=== PATIENT | male | born 1985 | race Caucasian/White ===

== ENCOUNTER 2016-02-25 09:42 | Emergency (ER) | payer OTHER ==
[~2016-02-25] VITALS: Ht 170.2 cm; Wt 105.9 kg
[~2016-02-25 09:42] MED LIST: AMT10 PO; CLON0.5T3 PO; OMEP40CA PO; SERT50TA PO
[2016-02-25 09:46] VITALS: TEMP 36.8; Ht 170.2 cm; Wt 105.9 kg
[2016-02-25] MEDS ORDERED: CYM30 PO (10:26)
[2016-02-25] MEDS ORDERED: PANT40TA2 PO (10:27)
[2016-02-25 10:43] VITALS: O2SAT 94
[2016-02-25 11:10] LABS: BASO % 0.2 %; BASO ABS # 0.01 K/uL (0-0.2); COMPLETE YES; EOS % 1.5 %; HEMATOCRIT 42.5 % (42-52); IG% 0.2 %; LYMPH ABS # 2.46 K/uL (1.2-3.4); MEAN CELL VOLUME 86.9 fL (80-100); MEAN CORPUSCULAR HEMOGLOBIN 31.5 pg (25-34); MEAN CORPUSCULAR HGB CONC 36.2 g/dl (32-36); MEAN PLATELET VOLUME 9.8 fL (7.4-10.4); MONO % 5.9 %; NEUT % 54.2 %; PLATELET COUNT 237 K/uL (130-400); RED BLOOD COUNT 4.89 M/uL (4.7-6.1); WHITE BLOOD COUNT 6.47 K/uL (4.8-10.8)
[2016-02-25 11:22] LABS: PARTIAL THROMBOPLASTIN RATIO 1.2; PROTHROMBIN TIME (PATIENT) 10.8 SECONDS (9.0-12.0)
--- NOTE | 2016-02-25 11:38 | DIAGNOSTIC IMAGING REPORT ---
CHEST ONE VIEW PORTABLE CLINICAL HISTORY: Fever. Weakness. Chest pressure. COMPARISON STUDY: Chest radiograph July 07, 2015. FINDINGS: Lung volumes are normal. Lungs are clear. There is no pneumothorax or pleural effusion. Cardiac size is normal. Mediastinal contours are normal. There is no evidence of pulmonary edema. IMPRESSION: No acute cardiopulmonary findings. Electronically signed by: Joseph Mast M.D. 02/25/2016 11:36 AM
[2016-02-25 11:42] LABS: ALT/SGPT 75 U/L (12-78); BLOOD UREA NITROGEN 10 mg/dl (7-18); CALCIUM 8.8 mg/dl (8.5-10.1); CARBON DIOXIDE 26 mmol/L (21-32); CHLORIDE 105 mmol/L (98-107); GLUCOSE 88 mg/dl (70-99); POTASSIUM 4.8 mmol/L (3.5-5.1); SODIUM 140 mmol/L (136-145)
[2016-02-25 11:52] VITALS: PULSE 60; O2SAT 97
[2016-02-25 11:53] LABS: ALKALINE PHOSPHATASE 90 U/L (45-117); AST/SGOT 39 U/L (15-37); CKMB/CK RATIO 0.5 (0-3.0)
[2016-02-25 11:59] VITALS: BP 158/88
--- NOTE | 2016-02-25 12:10 | EMERGENCY ROOM VISIT NOTE ---
History Report prepared by [place]tang: Sheyla Macario Under the Supervision of: Dr. Mickey Duffy D.O. First contact with patient: 10:39 Chief Complaint: CHEST PAIN Stated Complaint: WEAKNESS,CHEST PRESSURE,HEADACHE,L ARM NUMBNESS Nursing Triage Summary: pt awoke and had pain behind his L scapula, then developed cp that radiated down LUE, hx of anxiety, took his klonopin, pt states he is pain free now History of Present Illness The patient is a 30 year old male who presents to the Emergency Room with complaints of intermittent chest pain that started this morning. He woke up this morning with a stabbing pain behind his left scapula that radiated into his chest. The pain radiated down his left arm and he became diaphoretic. The patient also felt weak. He took a Klonopin and it relieved his pain. Currently, he is pain free. The patient states that he has a history of anxiety attacks and knows that the pain instigates.his anxiety. However, most of the time the pain starts when he is relaxed and not anxious. He adds that this has been an ongoing problem. Source of History: patient Onset: this morning Position: chest Quality: stabbing Timing: intermittent Associated Symptoms: + back pain, + diaphoresis, + weakness (generalized) Note: left arm pain Review of Systems See HPI for pertinent positives & negatives. A total of 10 systems reviewed and were otherwise negative. Past Medical & Surgical Medical Problems: (1) Anxiety (2) Panic disorder Surgical Problems: (1) S/P ACL repair Family History FH: heart disease FATHER (onset age 60 with [place] and pacemaker ) Social History Smoking Status: Never Smoker Alcohol Use: occasionally Drug Use: none Occupation Status: employed Current/Historical Medications Scheduled Duloxetine HCl (Duloxetine HCl), 30 MG PO DAILY Omeprazole (Prilosec), 40 MG PO DAILY Pantoprazole (Pantoprazole Sodium), 1 TAB PO BID Scheduled PRN Clonazepam (Klonopin), 0.5 MG PO DAILY PRN for AN Allergies Coded Allergies: No Known Allergies (Unverified , 02/25/16) Physical Exam Vital Signs Date Time Temp Pulse Resp B/P Pulse Ox O2 Delivery O2 Flow Rate FiO2 02/25/16 11:47 147/84 02/25/16 11:42 63 18 96 02/25/16 11:29 130/75 02/25/16 11:12 60 16 02/25/16 10:58 138/89 02/25/16 10:43 94 Room Air 02/25/16 10:42 77 19 94 02/25/16 10:30 58 02/25/16 10:28 135/97 02/25/16 10:17 Room Air 02/25/16 10:16 136/98 02/25/16 09:46 36.8 62 20 153/95 99 Room Air Physical Exam CONSTITUTIONAL/VITAL SIGNS: Reviewed / noted above. GENERAL: Non-toxic in appearance. INTEGUMENTARY: Warm, dry, and [place]. HEAD: Normocephalic. EYES: without scleral icterus or trauma. ENT/OROPHARYNX: clear and moist. LYMPHADENOPATHY/NECK: Is supple without lymphadenopathy or meningismus. RESPIRATORY: Lungs clear and equal. CARDIOVASCULAR: Regular rate and rhythm. GI/ABDOMEN: Soft and nontender. No organomegaly or pulsatile mass. No rebound or guarding. Normal bowel sounds. EXTREMITIES: Warm and well perfused. BACK: No CVA tenderness. NEUROLOGICAL: Intact without focal deficits. PSYCHIATRIC: normal affect. MUSCULOSKELETAL: Normally developed with good muscle tone. Medical Decision & Procedures ER Provider Diagnostic Interpretation: X ray results and stated below per my interpretation and radiology interpretation. CHEST ONE VIEW PORTABLE CLINICAL HISTORY: Fever. Weakness. Chest pressure. COMPARISON STUDY: Chest radiograph July 07, 2015. FINDINGS: Lung volumes are normal. Lungs are clear. There is no pneumothorax or pleural effusion. Cardiac size is normal. Mediastinal contours are normal. There is no evidence of pulmonary edema. IMPRESSION: No acute cardiopulmonary findings. Electronically signed by: Joseph Mast M.D. 02/25/2016 11:36 AM Laboratory Results 02/25/16 11:01 Red Blood Count 4.89, Mean Corpuscular Volume 86.9, Mean Corpuscular Hemoglobin 31.5, Mean Corpuscular Hemoglobin Concent 36.2, Mean Platelet Volume 9.8, Neutrophils (%) (Auto) 54.2, Lymphocytes (%) (Auto) 38.0, Monocytes (%) (Auto) 5.9, Eosinophils (%) (Auto) 1.5, Basophils (%) (Auto) 0.2, Neutrophils # (Auto) 3.51, Lymphocytes # (Auto) 2.46, Monocytes # (Auto) 0.38, Eosinophils # (Auto) 0.10, Basophils # (Auto) 0.01 02/25/16 11:01 Test 02/25/16 11:01 White Blood Count 6.47 K/uL (4.8-10.8) Red Blood Count 4.89 M/uL (4.7-6.1) Hemoglobin 15.4 g/dL (14.0-18.0) Hematocrit 42.5 % (42-52) Mean Corpuscular Volume 86.9 fL (80-100) Mean Corpuscular Hemoglobin 31.5 pg (25-34) Mean Corpuscular Hemoglobin Concent 36.2 g/dl (32-36) Platelet Count 237 K/uL (130-400) Mean Platelet Volume 9.8 fL (7.4-10.4) Neutrophils (%) (Auto) 54.2 % Lymphocytes (%) (Auto) 38.0 % Monocytes (%) (Auto) 5.9 % Eosinophils (%) (Auto) 1.5 % Basophils (%) (Auto) 0.2 % Neutrophils # (Auto) 3.51 K/uL (1.4-6.5) Lymphocytes # (Auto) 2.46 K/uL (1.2-3.4) Monocytes # (Auto) 0.38 K/uL (0.11-0.59) Eosinophils # (Auto) 0.10 K/uL (0-0.5) Basophils # (Auto) 0.01 K/uL (0-0.2) RDW Standard Deviation 39.4 fL (36.4-46.3) RDW Coefficient of Variation 12.4 % (11.5-14.5) Immature Granulocyte % (Auto) 0.2 % Immature Granulocyte # (Auto) 0.01 K/uL (0.00-0.02) Prothrombin Time 10.8 SECONDS (9.0-12.0) Prothromb Time International Ratio 1.0 (0.9-1.1) Activated Partial Thromboplast Time 30.2 SECONDS (21.0-31.0) Partial Thromboplastin Ratio 1.2 D-Dimer 190 ug/L FEU (0-500) Anion Gap 9.0 mmol/L (3-11) Est Creatinine Clear Calc Drug Dose 116.0 ml/min Estimated GFR () 105.3 Estimated GFR (Non- 90.9 BUN/Creatinine Ratio 9.0 (10-20) Calcium Level 8.8 mg/dl (8.5-10.1) Total Bilirubin 0.3 mg/dl (0.2-1) Direct Bilirubin < 0.1 mg/dl (0-0.2) Aspartate Amino Transf (AST/SGOT) 39 U/L (15-37) Alanine Aminotransferase (ALT/SGPT) 75 U/L (12-78) Alkaline Phosphatase 90 U/L (45-117) Total Creatine Kinase 99 U/L (39-308) Creatine Kinase MB 0.5 ng/ml (0.5-3.6) Creatine Kinase MB Ratio 0.5 (0-3.0) Troponin I < 0.015 ng/ml (0-0.045) Total Protein 7.9 gm/dl (6.4-8.2) Albumin 4.1 gm/dl (3.4-5.0) Lipase 122 U/L (73-393) Thyroid Stimulating Hormone (TSH) 1.660 uIu/ml (0.300-4.500) Laboratory results as stated above per my review. ECG Indication: chest pain Rate (beats per minute): 59 Rhythm: sinus bradycardia Findings: no acute ischemic change, no ectopy ED Course 1052: Previous medical records were reviewed. The patient was evaluated in room A12. A complete history and physical examination was performed. 1214: On reevaluation, the patient is doing well. I discussed the results and findings with the patient. He verbalized agreement of the treatment plan. He was discharged home. Medical Decision Differential includes acute myocardial infarction, acute coronary syndrome, myocarditis, pericarditis, pericardial effusions /tamponad, esophageal perforation, thoracic aortic dissection, pulmonary embolism, pneumonia, pneumothorax, pancreatitis, shingles, acute cholecystitis, perforated abdominal viscus. This is a 30-year-old male who presents to the ED with a chief complaint of a sharp left-sided back pain radiating into the left chest. This awoke him from sleep this morning. It seemed to be worse with deep breathing. He also feels a little clammy. He does have a history of anxiety. He says that some of his symptoms may be related to anxiety. The patient took Klonopin. His symptoms resolved. He is no longer having pain. His vital signs are normal. His physical exam reveals no abnormal findings. EKG shows a sinus rhythm. CBC is normal. D-dimer is negative. Troponin was negative. Chemistry panel was unremarkable. Chest x-ray did not show any acute disease. The patient was told the results of the test. He is felt to be stable for discharge and outpatient follow-up. Impression Primary Impression: Left sided chest pain Additional Impression: Left-sided back pain Scribe Attestation The scribe's documentation has been prepared under my direction and personally reviewed by me in its entirety. I confirm that the note above accurately reflects all work, treatment, procedures, and medical decision making performed by me. Departure Information Dispostion Home / Self-Care Referrals Patricio Adrian M.D. (PCP) Forms HOME CARE DOCUMENTATION FORM, IMPORTANT VISIT INFORMATION Patient Instructions A Signature Page, Chest Pain - [facility], Counts Include 234 B[facility] At [facility] Additional Instructions Follow-up with your doctor for further care and evaluation in 1-2 days. Return to the emergency department for worsening or new symptoms or any concerns. You have been examined and treated today on an emergency basis only. This is not a substitute for, or an effort to provide, complete comprehensive medical care. It is impossible to recognize and treat all injuries or illnesses in a single emergency department visit. It is therefore important that you follow up closely with your doctor. Call as soon as possible for an appointment.
== END 2016-02-25 12:23 | disposition home or self-care (01) ==
LOC: C.EDB 09:44 → C.EDA 12:23
DX: R07.9 Chest pain, unspecified (principal); M54.9 Dorsalgia, unspecified; F41.9 Anxiety disorder, unspecified; Z82.49 Family history of ischemic heart disease and other diseases of the circulatory system; Z79.899 Other long term (current) drug therapy

== ENCOUNTER 2022-03-28 19:31 | Inpatient (IN) ==
[2022-03-28 20:37] LABS: Basophils # (auto) 0.04 K/uL (0-0.2); Basophils % (auto) 0.5 %; Eosinophils # (auto) 0.07 K/uL (0-0.50); Eosinophils % (auto) 0.9 %; Hematocrit (blood only) 41.4 % (42.0-52.0); Hemoglobin 14.4 g/dl (14.0-18.0); Immature Granulocytes # (auto) 0.02 K/uL (0.01-0.20); Immature Granulocytes % (auto) 0.2 %; Lymphocytes # (auto) 2.51 K/uL (1.2-3.4); Lymphocytes % (auto) 31.3 %; Mean Corpuscular Hemoglobin 31.6 pg (25.0-34.0); Mean Corpuscular Hgb Conc 34.8 g/dL (32.0-36.0); Mean Corpuscular Volume 90.8 fL (80.0-100.0); Mean Platelet Volume 10.2 fL (9.4-12.4); Monocytes # (auto) 0.45 K/uL (0.11-0.59); Monocytes % (auto) 5.6 %; Neutrophils # (auto) 4.93 K/uL (1.40-6.50); Neutrophils % (auto) 61.5 %; Platelet Count 217 K/uL (130-400); RDW Coefficient of Variation 12.6 % (11.5-14.5); RDW Standard Deviation 41.7 fL (36.4-46.3); Red Blood Count 4.56 M/uL (4.70-6.10); White Blood Count 8.02 K/ul (4.8-10.8)
[2022-03-28 20:56] LABS: Acetaminophen 5 ug/ml (10-30); Salicylate < 3.0 mg/dl (3.0-30)
[2022-03-28 21:01] LABS: Albumin Globulin Ratio 1.6 (0.9-2); Albumin Level 4.5 gm/dl (3.4-5.0); BUN Creatinine Ratio 18.6 (10-20); Bilirubin,Total 0.5 mg/dl (0.2-1.0); Calcium 9.5 mg/dl (8.5-10.1); Creatinine Clr Calc Pharmacy 104.4 ml/min; Est GFR (African American) 109.9 ml/min; Est GFR (Non-African American) 94.8 ml/min; Globulin 2.8 gm/dl (2.5-4.0); Potassium 4.1 mmol/L (3.5-5.1); Total Protein 7.3 gm/dl (6.0-8.3)
[2022-03-28 21:51] LABS: Bilirubin Urine Negative (Negative); Blood Urine Negative (Negative); Color Urine Yellow; Glucose Urine UA Negative (Negative); Ketones Urine Trace (Negative); Leukocyte Esterase Urine Negative (Negative); Nitrite Urine Negative (Negative); Protein Urine Negative (Negative); Specific Gravity Urine 1.029 (1.000-1.030); Urobilinogen Urine Negative (Negative); pH Urine 6.5 (4.5-7.5)
[2022-03-28 21:54] LABS: Appearance Urine Slightly Cloudy (Clear)
[2022-03-28 22:17] LABS: Amphetamines+Metham, Urine Neg (Neg); Barbiturates, Urine Neg (Neg); Benzodiazepine, Urine Neg (Neg); Cocaine, Urine Neg (Neg); MDMA (Ecstacy), Urine Neg (Neg); Methadone, Urine Neg (Neg); Opiate, Urine Neg (Neg); Phencyclidine, Urine Neg (Neg)
--- NOTE | 2022-03-28 22:22 | Emergency Department Note ---
History of Present Illness General Chief complaint: Mental Health Evaluation Stated complaint: MENTAL HEALTH EVAULATION Time Seen by Provider: 03/28/22 19:46 History of Present Illness Provider complaint: Mental health evaluation 37-year-old male presents emergency department with mental health evaluation. Patient has a history of narcissistic personal. Patient states he has been havi ng difficulty managing his emotions going from rate depression. Patient reports suicidal ideation having reckless driving. Home Medications Medication Instructions Recorded Confirmed Type naltrexone 50 mg tablet 50 mg PO QAM 06/16/18 03/28/22 History pantoprazole 40 mg tablet,delayed 40 mg PO BID 06/16/18 03/28/22 History release trazodone 50 mg tablet 50 mg PO QPM PRN Sleep 06/16/18 03/28/22 History lamotrigine 150 mg tablet 300 mg PO QAM 04/09/19 03/28/22 History (Lamictal) minocycline 50 mg capsule 500 mg PO QAM 09/06/20 12/20/20 History Allergies Allergy/AdvReac Type Severity Reaction Status Date / Time metoclopramide [From Reglan] AdvReac Mild Akathisia Verified 12/20/20 17:37 azithromycin [From Zithromax] AdvReac Anxiety Verified 12/20/20 17:37 Past Med/Surg History Medical History Anxiety Bipolar disorder 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 Panic disorder Surgical History S/P ACL repair Family History Other No significant family history Social History Smoking Status: Current every day smoker Tobacco Type: Cigarettes Preferred Language: Malagasy marital status: Current Living Situation: Family current occupational status: unemployed Feels Safe at Home: Yes Gender Identity: Male Physical Exam Vital Signs Vital Signs - 24 hr 03/28/22 19:37 03/28/22 20:15 03/28/22 22:30 Temperature 36.6 C Temperature Source Temporal Artery Scan Pulse Rate 80 Pulse Rate [Finger] 72 55 L Respiratory Rate 20 20 16 Respiratory Effort / Characteristics Non-Labored Spontaneous Non-Labored Spontaneous Non-Labored Spontaneous Respiratory Depth Normal Normal Normal Blood Pressure 169/95 H Blood Pressure [Left Arm] 147/101 H 140/79 Blood Pressure Mean 119 Blood Pressure Mean [Left Arm] 116 99 Pulse Oximetry 98 98 98 Oxygen Delivery Method Room Air Room Air Room Air Sepsis Recent Fever Within 48 Hours No Sepsis New/Unexplained Change in Mental Status N/A Sepsis Action Taken by Nursing No Action Required Physical Exam GENERAL: He is oriented to person, place, and time. He appears well-developed and well-nourished. HENT: Exam performed. - Head: Normocephalic and atraumatic. EYES: Conjunctivae and EOM are normal. Right eye exhibits no discharge. Left eye exhibits no discharge. No scleral icterus. NECK: Normal range of motion. Neck supple. No JVD present. CV: Normal rate, regular rhythm, normal heart sounds and intact distal pulses. There is no peripheral edema. Palpable radial pulses bue. PULM/CHEST: Effort normal and breath sounds normal. No respiratory distress. No stridor. He has no wheezes. He has no rales. ABD: The abdomen is soft. There is no tenderness. NEURO: Motor and sensation grossly intact. SKIN: Skin is warm and dry. He is not diaphoretic. PSYCH: He has a normal mood and affect. Behavior is normal. Judgment and thought content normal. Course Course 1945: The patient was evaluated in room A7. A complete history and physical exam was performed Cardiac monitoring: An order was placed for continuous cardiac monitoring. The monitor shows a rate of 50 with sinus rhythm interpreted by me 2230: Vital signs stable. Patient medically cleared. Awaiting psychiatric evaluation. Patient placed in observation at this time. 2348: Patient still awaiting psychiatric placement. Case signed out to Dr. Davidson. Observation note Indication: Psych eval/placement Patient, with bipolar disorder, narcissistic personality disorder was first seen at 1946 hrs and the observation time began at 2230 hrs and was necessary in order to have psych evaluation completed . Medical Decision Making Laboratory Data Attestation: I reviewed the patient's lab results. 03/28/22 20:23 03/28/22 20:23 Lab Results 03/28/22 03/28/22 03/28/22 Range/Units 20:23 20:23 20:23 WBC 8.02 (4.8-10.8) K/ul RBC 4.56 L (4.70-6.10) M/uL Hgb 14.4 (14.0-18.0) g/dl Hct 41.4 L (42.0-52.0) % MCV 90.8 (80.0-100.0) fL MCH 31.6 (25.0-34.0) pg MCHC 34.8 (32.0-36.0) g/dL RDW Std Deviation 41.7 (36.4-46.3) fL RDW Coeff of Jaxson 12.6 (11.5-14.5) % Plt Count 217 (130-400) K/uL MPV 10.2 (9.4-12.4) fL Immature Gran % (Auto) 0.2 % Neut % (Auto) 61.5 % Lymph % (Auto) 31.3 % [place] % (Auto) 5.6 % Eos % (Auto) 0.9 % Baso % (Auto) 0.5 % Neut # (Auto) 4.93 (1.40-6.50) K/uL Lymph # (Auto) 2.51 (1.2-3.4) K/uL [place] # (Auto) 0.45 (0.11-0.59) K/uL Eos # (Auto) 0.07 (0-0.50) K/uL Baso # (Auto) 0.04 (0-0.2) K/uL Immature Gran # (Auto) 0.02 (0.01-0.20) K/uL Sodium 140 (136-145) mmol/L Potassium 4.1 (3.5-5.1) mmol/L Chloride 103 (98-107) mmol/L Carbon Dioxide 29 (21-32) mmol/L Anion Gap 8 (3-11) BUN 19 (6-23) mg/dl Creatinine 1.02 (0.6-1.4) mg/dl Est Cr Clr Drug Dosing 104.4 ml/min Est GFR ( Amer) 109.9 ml/min Est GFR (Non-Af Amer) 94.8 ml/min BUN/Creatinine Ratio 18.6 (10-20) Glucose 106 H (70-99(Fasting)) mg/dl Calcium 9.5 (8.5-10.1) mg/dl Total Bilirubin 0.5 (0.2-1.0) mg/dl AST 17 (13-39) U/L ALT 13 (7-52) U/L Alkaline Phosphatase 76 (34-104) U/L Total Protein 7.3 (6.0-8.3) gm/dl Albumin 4.5 (3.4-5.0) gm/dl Globulin 2.8 (2.5-4.0) gm/dl Albumin/Globulin Ratio 1.6 (0.9-2) TSH 2.776 (0.300-4.500) uIu/ml Urine Color Urine Appearance (Clear) Urine pH (4.5-7.5) Ur Specific Clancy (1.000-1.030) Urine Protein (Negative) Urine Glucose (UA) (Negative) Urine Ketones (Negative) Urine Blood (Negative) Urine Nitrite (Negative) Urine Bilirubin (Negative) Urine Urobilinogen (Negative) Ur Leukocyte Esterase (Negative) Salicylates (3.0-30) mg/dl Urine Opiates Screen (Neg) Ur Methadone, Qual (Neg) Acetaminophen (10-30) ug/ml Urine Barbiturates (Neg) Ur Phencyclidine (PCP) (Neg) U Amphetamin/Meth Scrn (Neg) MDMA (Ecstasy) Screen (Neg) U Benzodiazepines Scrn (Neg) Ur Cocaine Metabolite (Neg) U Marijuana (THC) Screen (Neg) Ethyl Alcohol mg/dL (<10.0) mg/dl SARS-CoV-2, RNA, NAAT (NEGATIVE) 03/28/22 03/28/22 03/28/22 Range/Units 20:23 20:23 20:23 WBC (4.8-10.8) K/ul RBC (4.70-6.10) M/uL Hgb (14.0-18.0) g/dl Hct (42.0-52.0) % MCV (80.0-100.0) fL MCH (25.0-34.0) pg MCHC (32.0-36.0) g/dL RDW Std Deviation (36.4-46.3) fL RDW Coeff of Jaxson (11.5-14.5) % Plt Count (130-400) K/uL MPV (9.4-12.4) fL Immature Gran % (Auto) % Neut % (Auto) % Lymph % (Auto) % [place] % (Auto) % Eos % (Auto) % Baso % (Auto) % Neut # (Auto) (1.40-6.50) K/uL Lymph # (Auto) (1.2-3.4) K/uL [place] # (Auto) (0.11-0.59) K/uL Eos # (Auto) (0-0.50) K/uL Baso # (Auto) (0-0.2) K/uL Immature Gran # (Auto) (0.01-0.20) K/uL Sodium (136-145) mmol/L Potassium (3.5-5.1) mmol/L Chloride (98-107) mmol/L Carbon Dioxide (21-32) mmol/L Anion Gap (3-11) BUN (6-23) mg/dl Creatinine (0.6-1.4) mg/dl Est Cr Clr Drug Dosing ml/min Est GFR ( Amer) ml/min Est GFR (Non-Af Amer) ml/min BUN/Creatinine Ratio (10-20) Glucose (70-99(Fasting)) mg/dl Calcium (8.5-10.1) mg/dl Total Bilirubin (0.2-1.0) mg/dl AST (13-39) U/L ALT (7-52) U/L Alkaline Phosphatase (34-104) U/L Total Protein (6.0-8.3) gm/dl Albumin (3.4-5.0) gm/dl Globulin (2.5-4.0) gm/dl Albumin/Globulin Ratio (0.9-2) TSH (0.300-4.500) uIu/ml Urine Color Urine Appearance (Clear) Urine pH (4.5-7.5) Ur Specific Clancy (1.000-1.030) Urine Protein (Negative) Urine Glucose (UA) (Negative) Urine Ketones (Negative) Urine Blood (Negative) Urine Nitrite (Negative) Urine Bilirubin (Negative) Urine Urobilinogen (Negative) Ur Leukocyte Esterase (Negative) Salicylates < 3.0 L (3.0-30) mg/dl Urine Opiates Screen (Neg) Ur Methadone, Qual (Neg) Acetaminophen 5 L (10-30) ug/ml Urine Barbiturates (Neg) Ur Phencyclidine (PCP) (Neg) U Amphetamin/Meth Scrn (Neg) MDMA (Ecstasy) Screen (Neg) U Benzodiazepines Scrn (Neg) Ur Cocaine Metabolite (Neg) U Marijuana (THC) Screen (Neg) Ethyl Alcohol mg/dL < 10.0 (<10.0) mg/dl SARS-CoV-2, RNA, NAAT NEGATIVE (NEGATIVE) 03/28/22 03/28/22 Range/Units 21:35 21:35 WBC (4.8-10.8) K/ul RBC (4.70-6.10) M/uL Hgb (14.0-18.0) g/dl Hct (42.0-52.0) % MCV (80.0-100.0) fL MCH (25.0-34.0) pg MCHC (32.0-36.0) g/dL RDW Std Deviation (36.4-46.3) fL RDW Coeff of Jaxson (11.5-14.5) % Plt Count (130-400) K/uL MPV (9.4-12.4) fL Immature Gran % (Auto) % Neut % (Auto) % Lymph % (Auto) % [place] % (Auto) % Eos % (Auto) % Baso % (Auto) % Neut # (Auto) (1.40-6.50) K/uL Lymph # (Auto) (1.2-3.4) K/uL [place] # (Auto) (0.11-0.59) K/uL Eos # (Auto) (0-0.50) K/uL Baso # (Auto) (0-0.2) K/uL Immature Gran # (Auto) (0.01-0.20) K/uL Sodium (136-145) mmol/L Potassium (3.5-5.1) mmol/L Chloride (98-107) mmol/L Carbon Dioxide (21-32) mmol/L Anion Gap (3-11) BUN (6-23) mg/dl Creatinine (0.6-1.4) mg/dl Est Cr Clr Drug Dosing ml/min Est GFR ( Amer) ml/min Est GFR (Non-Af Amer) ml/min BUN/Creatinine Ratio (10-20) Glucose (70-99(Fasting)) mg/dl Calcium (8.5-10.1) mg/dl Total Bilirubin (0.2-1.0) mg/dl AST (13-39) U/L ALT (7-52) U/L Alkaline Phosphatase (34-104) U/L Total Protein (6.0-8.3) gm/dl Albumin (3.4-5.0) gm/dl Globulin (2.5-4.0) gm/dl Albumin/Globulin Ratio (0.9-2) TSH (0.300-4.500) uIu/ml Urine Color Yellow Urine Appearance Slightly Cloudy A (Clear) Urine pH 6.5 (4.5-7.5) Ur Specific Clancy 1.029 (1.000-1.030) Urine Protein Negative (Negative) Urine Glucose (UA) Negative (Negative) Urine Ketones Trace H (Negative) Urine Blood Negative (Negative) Urine Nitrite Negative (Negative) Urine Bilirubin Negative (Negative) Urine Urobilinogen Negative (Negative) Ur Leukocyte Esterase Negative (Negative) Salicylates (3.0-30) mg/dl Urine Opiates Screen Neg (Neg) Ur Methadone, Qual Neg (Neg) Acetaminophen (10-30) ug/ml Urine Barbiturates Neg (Neg) Ur Phencyclidine (PCP) Neg (Neg) U Amphetamin/Meth Scrn Neg (Neg) MDMA (Ecstasy) Screen Neg (Neg) U Benzodiazepines Scrn Neg (Neg) Ur Cocaine Metabolite Neg (Neg) U Marijuana (THC) Screen Pos H (Neg) Ethyl Alcohol mg/dL (<10.0) mg/dl SARS-CoV-2, RNA, NAAT (NEGATIVE) [facility] Narrative 1946: The patient was evaluated in room A7. A complete history and physical exam was performed Cardiac monitoring: An order was placed for continuous cardiac monitoring. The monitor shows a rate of 50 with sinus rhythm interpreted by me 2230: Vital signs stable. Patient medically cleared. Awaiting psychiatric evaluation. Patient placed in observation at this time. 2347: Patient still awaiting psychiatric placement. Case signed out to Dr. Davidson. Observation note Indication: Psych eval/placement Patient, with bipolar disorder, narcissistic personality disorder was first seen at 1946 hrs and the observation time began at 2230 hrs and was necessary in order to have psych evaluation completed . 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
[2022-03-29] MEDS ORDERED: MAGNESIUM HYDROXIDE SUSP 30 ML UDC PO PRN (00:30)
[2022-03-29] MEDS ORDERED: SODIUM CHLORIDE 0.65% NA SOLN 45 ML (OCEAN) PRN (00:30)
[2022-03-29] MEDS ORDERED: BISMUTH SUBSALICYLATE LIQD 236 ML PO PRN (00:30)
[2022-03-29] MEDS ORDERED: ACETAMINOPHEN 325 MG TAB PO PRN (00:30)
--- NOTE | 2022-03-29 00:57 | Emergency Department Note ---
ED Visit Note Patient signed out to me at change of shift from Dr. Clemente. Patient medically cleared at time of signout and awaiting final disposition. During my shift patient admitted to 3 [address]., 201 signed by me. .
[2022-03-29] MEDS: hydrOXYzine HCl 25 MG TAB PO PRN ×2 (01:42→22:33)
--- NOTE | 2022-03-29 09:00 | History & Physical ---
Date of Service March 29, 2022 Impression / Recommendations Elsie Joiner is a 37 year old man with a history of narcissistic personality disorder, depression, alcohol use disorder and medical marijuana use who was admitted for worsening irritability, depression, and SI with reckless driving. Diagnostically consistent with major depression with psychotic features versus paranoia due to cannabis use as well as alcohol use disorder with recent relapse as well as NPD per history and question of intermittent explosive disorder. He is deemed in need of psychiatric hospitalization for diagnostic clarification, safety and stabilization, medication management and development of further coping skills. Discussed medication treatment options in detail. Discussed risks, benefits and alternatives including SSRIs, SNRIs, Depakote, lamictal, antipsychotics, naltrexone. Patient would like to continue with and consented to lamictal for mood stabilization, naltrexone for alcohol use disorder. He would like to start and consented to sertraline for MDD and abilify for depression augmentation and psychotic features. Reviewed side effects including but not limited to: GI, PANTOJA, sexual side effects, and counseled on black box warning of potential for emergence of or increased SI and need to let staff know should this occur or should they feel unsafe. Also discussed importance of seeking emergency care following discharge if this side effect occurs in the future for sertraline. Reviewed side effects including but not limited to: potential for toxic necrolytic rash with lamictal and importance of adherence and to restart at low dose if misses more than 3 days of use; and importance for routine liver monitoring with naltrexone and AST/ALT reviewed and normal. Reviewed side effects including but not limited to: movement (TD, NMS), cardiac (QTc prolongation), and metabolic (stroke, insulin resistance) and necessity for fasting lipid and glucose labwork and AIMS done with score of 0 for abilify. The patient's audit score and use history suggests problematic substance use. Brief intervention was offered and accepted. Intervention was greater than 5 minutes in length and included assessing readiness to quit, advice on how to reduce or abstain and to set a specific goal for this hospitalization. home economics extension worker will also assist in anticipating barriers to reducing or abstaining from substance use and in problem-solving for solutions to those problems while arranging for referral to appropriate treatment. The patient is in contemplative stage with regards to transtheoretical model of change. The patient is advised to decrease consumption due to depressant effects and risk of interaction with prescription medications. The patient agreed to work to avoid future use of alcohol and to reduce or avoid cannabis use and will be provided with recovery materials to continue to educate self on how to cope with their condition without using substances. 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 The patient will participate in group, recreational, and milieu therapies and will be offered additional individual and family sessions as clinically appropriate. -continue lamictal 225mg qd (confirmed has not missed any recent doses) -start abilify 2.5mg qd -start sertraline 25mg -re-start naltrexone 50mg with dinner -Mood disorder questionnaire -IED questionnaire Inventory Assets Strengths: supportive relationships, willing to get treatment, young children, good rapport with outpatient therapist Needs: safety and stabilization, medication adjustment, additional coping skills, increased outpatient services Suicide Risk Level Suicide Risk Level: High-Moderate (q15 min suicide checks) (depression with SI prior to admission but feels safe in the hospital, able to safety contract and agrees to let nursing/staff know should they develop plan, intent or feel unable to remain safe. 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 Chief Complaint "I try to do things to hopefully get me over this hump but it's been hard and creating this unmanageable feeling of not being able to do this". History of Present Illness He presents for psychiatric admission for worsening depression, mood swings, irritability and intrusive thoughts which leads to SI and urge to drive recklessly in the context of multiple psychosocial stressors including managing blended family dynamics and conflict with his girlfriend to the point that she's considering breaking up. He reflects "it's my anger and aggressiveness" that has been causing the conflict and despite his work in therapy still feels powerless at times to change his behaviors in the moment. He also reports a porn addiction, self-harm via head punching/banging, and low self-esteem/body dysmorphia particularly with regard to sexual organs. Recently has started using alcohol a bit again. He identifies ways that his insecurity or his negative feelings get displaced, and even though he knows why he is doing it, in the moment he finds he can't control things and this leads to conflict and then a cycle of regret. Finds he can get "obsessed" about things and ruminates on worries about work or money. 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 Increased tearfulness, anger/irritability, increased impulsivity, last three months self-harmed by hitting himself in the head due to "wave of obsessing over things", sleep poor with limited stretches at a time, decreased appetite. When he's alone he's been driving recklessly due to ambivalence about being alive. He's also noticed some increased paranoia, especially while painting like someone is watching over his shoulder. Always struggles more with depression during the colder months. Missed too many psychiatric appointments so was discharged from the practice. He is prescribed lamictal 225mg daily (last filled February by his PCP) and has been taking this. Has been taking naltrexone 50mg for alcohol use but will stop it intermittently so he can feel more of the effects of alcohol and stopped taking naltrexone completely this weekend. Reviewed and confirmed recent history per ED psych CM note from 03/29/2022: "Met with Rhys and his bedside to complete mental health evaluation. Rhys stated he is diagnosed with Bipolar Disorder and Narcissistic Personality Disorder. Rhys stated he feels like he is cycling uncontrollably though out the day. Rhys stated he is unable to regulate his emotions and feels "emotionally out of control." He stated he has been in therapy for three years and has been working hard to "manage my narcissistic tendencies." Rhys stated he is insightful and "when I slip up and do something like call my a name I get upset with myself. Then I get angry and do something stupid like punch the wall. Then I get more upset with myself and start perseverating on suicide." Rhys stated he has intermittent thoughts of suicide that have been increasing lately. He denies active plan or intent of suicide. He denies prior suicide attempts. Rhys stated he starts to feel very frustrated "and then I just don't care and do more stupid stuff like drive erratically." Rhys stated he is worried that "something bad is going to happen if I don't get my emotions under control." He stated he has 5 children and "don't want them to ever see me do something." Rhys denies any HI. He admits to only driving aggressively and occasionally punching a wall. He denies SIB. He reports poor appetite and decreased sleep. He denies hallucinations. He stated he recently started to feel paranoid at work that he is being watched or someone is standing behind him. 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 He stated he has not been able to focus on work lately. He has a history of alcohol abuse. Rhys stated he has gone to rehab x2 ([facility]) and had been sober until "starting to dabble a little recently." Rhys stated he had a drink on Thursday and "just worried if I don't get my mental health under control that alcohol will become an issue again." Rhys stated he is prescribed medicinal marijuana. He admits to "recently using it more recreationally which I know I shouldn't be doing." He denies other substance use. He denies history of trauma or abuse. He did stated he was raised in "an emotionally bad family." He denies legal issues. He denies medical concerns. Rhys stated he was prescribed medication by Dr. Price but he was recently dropped due to missed appointments. His medications are currently being continued by PCP. Rhys sees a therapist at [facility] twice a week. He stated his therapist seems to focus on the NPD and not really help him address his mood instability or anger management. Rhys was seeing a drug and alcohol counselor at [facility] until provider closed recently. Rhys would like to be admitted for inpatient mental health treatment." Psychiatric ROS notable for no current nor history of symptoms of marty, psychosis, PTSD, OCD nor eating disorder. Past Psychiatric History Previous Psych History: history of BPAD type II but he feels this was clarified to more accurate as NPD Current Psychiatric Diagnosis: Major depression Outpatient Services: Alfredo Trevino therapist [facility] twice weekly; had been doing couples therapy; previously saw Dr. Weathers at [facility] Previous Psych Admissions: none Do You Have Access To A Gun?: Yes (in a locked safe, willing to have these removed from the home) History of Previous Suicide Attempt: No Past Medication Trials: Viibryd-stopped three months ago, Wellbutrin, duloxetine, Paxil, Citalopram, Lexapro-he was drinking in the past while on this so wasn't necessarily a full trial; no hx depakote, no hx antipsychotics Past Head Trauma/Neuro History History of Concussion/Seizure: No Allergies Allergy/AdvReac Type Severity Reaction Status Date / Time metoclopramide [From Reglan] AdvReac Mild Akathisia Verified 03/29/22 10:52 azithromycin [From Zithromax] AdvReac Anxiety Verified 03/29/22 10:52 Home Medications Medication Instructions Recorded Confirmed Type naltrexone 50 mg tablet 50 mg PO QAM 06/16/18 03/28/22 History pantoprazole 40 mg tablet,delayed 40 mg PO BID 06/16/18 03/28/22 History release trazodone 50 mg tablet 50 mg PO QPM PRN Sleep 06/16/18 03/28/22 History lamotrigine 150 mg tablet 300 mg PO QAM 04/09/19 03/28/22 History (Lamictal) minocycline 50 mg capsule 500 mg PO QAM 09/06/20 12/20/20 History Family History Family History of: Alcoholism/Drug Abuse (brother, maternal uncle ), Other-List under Comment and Bipolar (paternal grandmother) Family Mental Health History Comment: Father - Narcissitic Personality Alcohol History Hx of Alcohol Use Over the Past 12 Months: Yes (sober for several months and recently "dabbled with it") AUDIT Total Score: 14 lately has been having at times 4-5 drinks on an evening, last drank on Thursday evening Smoking Use Have You Smoked or Used Tobacco Products in the Last 30 Days: No Smoking Status: Former smoker Substance History Hx of Prescription Med Misuse Over the Past 12 Months: No Hx of Over the Counter Med Misuse Over the Past 12 Months: No Hx of Inhalent Misuse Over the Past 12 Months: No Hx of Organic Substance Use Over the Past 12 Months: Yes (medical marijuana) Hx of Illegal Substances/Street Drug Use Over Past 12 Months: No Problems as a Result of Past Substance Use: None Identified medical cannabis via inhalation, ingestion, uses all day every day via vape pen, smoke throughout work day; he's been using it consistently for 15-16 years but he is interested in reducing his use Personal History Living Arrangements: Home Childhood: Close relationship with his mother. Limited relationship with his father. Has two brothers. Highest Grade Completed: College Employment Status: Self-Employed Marital Status: Living w/ Signif. Other (have been together since 2019) Number Of Children: 3 children Beliefs That Will Affect Care: None Current Legal Problems: No Hx Legal Problems: Yes (summary harashment and road rage charge) Hx Traumatic Life Events: No Additional Comments: Served 8 years in the . Patient History Medical History Anxiety Bipolar disorder 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 Panic disorder Surgical History S/P ACL repair Family History Other No significant family history Social History Smoking Status: Former smoker Tobacco Type: Cigarettes Preferred Language: Guyanese Communication Ability: Effective Battery Loader Required: No Beliefs That Will Affect Care: None marital status: Current Living Situation: Family current occupational status: unemployed Feels Safe at Home: Yes Gender Identity: Male Assistive Devices: None Review of Systems Review of Systems: All systems reviewed & are unremarkable except as noted in HPI & below Physical Exam Psychiatric: Orientation: alert and oriented x 3 Apperance: appropriately dressed and appropriately groomed Eye Contact: good eye contact Motor Behavior: no abnormal motor movements Speech: normal rate/rhythm/volume of speech Affect: + depressed affect and + anxious affect Mood: + depressed mood and + anxious mood Thought Process: + circumstantial thought process Thought Content: + paranoid (at times, sense someone is watching ) and reality based without delusions Suicidal Thoughts: denies suicidal intent; + reports suicidal thoughts (intermittent thoughts ) and + reports suicidal plan (none for here, outside hospital has been driving recklessly) Homicidal Thoughts: denies homicidal thoughts Hallucinations: no auditory hallucinations and no visual hallucinations Cognition: recent memory grossly intact, remote memory grossly intact, attention grossly intact and language grossly intact Estimated Intelligence: consistent with education level Insight: + fair insight Judgment: + limited judgement Vital Signs (Past 24 Hours): Last Vital Signs Temp 36.1 C L 03/29/22 06:00 Pulse 59 L 03/29/22 06:00 Resp 18 03/29/22 06:00 BP 127/67 03/29/22 06:27 Pulse Ox 99 03/29/22 06:00 O2 Del Method 03/29/22 06:00 Exam Statement: A physical exam was performed in the ED by Dr. Clemente for the purposes of medical clearance. I accept that physical as correct and adequate for the purposes of the inpatient physical exam. Results & Data ([facility]) Laboratory Results Laboratory Results - last 24 hr 03/28/22 03/28/22 03/28/22 20:23 20:23 20:23 WBC 8.02 RBC 4.56 L Hgb 14.4 Hct 41.4 L MCV 90.8 MCH 31.6 MCHC 34.8 RDW Std Deviation 41.7 RDW Coeff of Jaxson 12.6 Plt Count 217 MPV 10.2 Immature Gran % (Auto) 0.2 Neut % (Auto) 61.5 Lymph % (Auto) 31.3 [place] % (Auto) 5.6 Eos % (Auto) 0.9 Baso % (Auto) 0.5 Neut # (Auto) 4.93 Lymph # (Auto) 2.51 [place] # (Auto) 0.45 Eos # (Auto) 0.07 Baso # (Auto) 0.04 Immature Gran # (Auto) 0.02 Sodium 140 Potassium 4.1 Chloride 103 Carbon Dioxide 29 Anion Gap 8 BUN 19 Creatinine 1.02 Est Cr Clr Drug Dosing 104.4 Est GFR ( Amer) 109.9 Est GFR (Non-Af Amer) 94.8 BUN/Creatinine Ratio 18.6 Glucose 106 H Calcium 9.5 Total Bilirubin 0.5 AST 17 ALT 13 Alkaline Phosphatase 76 Total Protein 7.3 Albumin 4.5 Globulin 2.8 Albumin/Globulin Ratio 1.6 TSH 2.776 Urine Color Urine Appearance Urine pH Ur Specific [place] Urine Protein Urine Glucose (UA) Urine Ketones Urine Blood Urine Nitrite Urine Bilirubin Urine Urobilinogen Ur Leukocyte Esterase Salicylates Urine Opiates Screen Ur Methadone, Qual Acetaminophen Urine Barbiturates Ur Phencyclidine (PCP) U Amphetamin/Meth Scrn MDMA (Ecstasy) Screen U Benzodiazepines Scrn Ur Cocaine Metabolite U Marijuana (THC) Screen U Marijuana THC Carboxy Drug Screen Comment Ethyl Alcohol mg/dL SARS-CoV-2, RNA, NAAT 03/28/22 03/28/22 03/28/22 20:23 20:23 20:23 WBC RBC Hgb Hct MCV MCH MCHC RDW Std Deviation RDW Coeff of Jaxson Plt Count MPV Immature Gran % (Auto) Neut % (Auto) Lymph % (Auto) [place] % (Auto) Eos % (Auto) Baso % (Auto) Neut # (Auto) Lymph # (Auto) [place] # (Auto) Eos # (Auto) Baso # (Auto) Immature Gran # (Auto) Sodium Potassium Chloride Carbon Dioxide Anion Gap BUN Creatinine Est Cr Clr Drug Dosing Est GFR ( Amer) Est GFR (Non-Af Amer) BUN/Creatinine Ratio Glucose Calcium Total Bilirubin AST ALT Alkaline Phosphatase Total Protein Albumin Globulin Albumin/Globulin Ratio TSH Urine Color Urine Appearance Urine pH Ur Specific [place] Urine Protein Urine Glucose (UA) Urine Ketones Urine Blood Urine Nitrite Urine Bilirubin Urine Urobilinogen Ur Leukocyte Esterase Salicylates < 3.0 L Urine Opiates Screen Ur Methadone, Qual Acetaminophen 5 L Urine Barbiturates Ur Phencyclidine (PCP) U Amphetamin/Meth Scrn MDMA (Ecstasy) Screen U Benzodiazepines Scrn Ur Cocaine Metabolite U Marijuana (THC) Screen U Marijuana THC Carboxy Drug Screen Comment Ethyl Alcohol mg/dL < 10.0 SARS-CoV-2, RNA, NAAT NEGATIVE 03/28/22 03/28/22 03/28/22 21:35 21:35 21:35 WBC RBC Hgb Hct MCV MCH MCHC RDW Std Deviation RDW Coeff of Jaxson Plt Count MPV Immature Gran % (Auto) Neut % (Auto) Lymph % (Auto) [place] % (Auto) Eos % (Auto) Baso % (Auto) Neut # (Auto) Lymph # (Auto) [place] # (Auto) Eos # (Auto) Baso # (Auto) Immature Gran # (Auto) Sodium Potassium Chloride Carbon Dioxide Anion Gap BUN Creatinine Est Cr Clr Drug Dosing Est GFR ( Amer) Est GFR (Non-Af Amer) BUN/Creatinine Ratio Glucose Calcium Total Bilirubin AST ALT Alkaline Phosphatase Total Protein Albumin Globulin Albumin/Globulin Ratio TSH Urine Color Yellow Urine Appearance Slightly Cloudy A Urine pH 6.5 Ur Specific [place] 1.029 Urine Protein Negative Urine Glucose (UA) Negative Urine Ketones Trace H Urine Blood Negative Urine Nitrite Negative Urine Bilirubin Negative Urine Urobilinogen Negative Ur Leukocyte Esterase Negative Salicylates Urine Opiates Screen Neg Ur Methadone, Qual Neg Acetaminophen Urine Barbiturates Neg Ur Phencyclidine (PCP) Neg U Amphetamin/Meth Scrn Neg MDMA (Ecstasy) Screen Neg U Benzodiazepines Scrn Neg Ur Cocaine Metabolite Neg U Marijuana (THC) Screen Pos H U Marijuana THC Carboxy Pending Drug Screen Comment Pending Ethyl Alcohol mg/dL SARS-CoV-2, RNA, NAAT Current Inpatient Medications Current Inpatient Medications: Current Inpatient Medications Acetaminophen (Acetaminophen 325 Mg Tab) 650 mg PO Q4H PRN PRN Reason: Headache or Minor Fever Stop: 04/28/22 00:29 Al Hydrox/Mg Hydrox/Simethicone (Aluminum/Magnesium Susp 30 Ml Udc) 30 ml PO Q4H PRN PRN Reason: GI Upset Stop: 04/28/22 00:29 Bismuth Subsalicylate (Bismuth Subsalicylate Liqd 236 Ml) 15 ml PO PRN PRN PRN Reason: Loose Stool Stop: 04/28/22 00:29 Hydroxyzine HCl (Hydroxyzine Hcl 25 Mg Tab) 50 mg PO HSZ PRN PRN Reason: Insomnia Stop: 04/28/22 00:29 Last Admin: 03/29/22 01:42 Dose: 50 mg Hydroxyzine HCl (Hydroxyzine Hcl 25 Mg Tab) 25 mg PO Q4H PRN PRN Reason: Anxiety Stop: 04/28/22 00:29 Magnesium Hydroxide (Magnesium Hydroxide Susp 30 Ml Udc) 30 ml PO DAILY PRN PRN Reason: Constipation Stop: 04/28/22 00:29 Sodium Chloride (Sodium Chloride 0.65% Na Soln 45 Ml ([place])) 1 - 2 sprays NA PRN PRN PRN Reason: Nasal Dryness/Congestion Stop: 04/28/22 00:29
[2022-03-29] MEDS ORDERED: NALTREXONE HCL 50 MG TAB PO SCH ×2 (11:00→17:15)
[2022-03-29] MEDS: lamoTRIgine 25 MG TAB PO SCH (12:37)
[2022-03-29] MEDS: ARIPiprazole 5 MG TAB PO SCH (12:37)
[2022-03-29] MEDS: lamoTRIgine 100 MG TAB PO SCH (12:37)
[2022-03-29] MEDS: PANTOprazole 40 MG TAB PO SCH (12:37)
[2022-03-29] MEDS: SERTRALINE HCL 50 MG TABLET PO SCH (12:38)
[2022-03-29] MEDS: ALUMINUM/MAGNESIUM SUSP 30 ML UDC PO PRN (17:57)
[2022-03-30 07:43] LABS: Chol HDL Ratio 2.8 (0-5)
[2022-03-30] MEDS: ARIPiprazole 5 MG TAB PO SCH (08:37)
[2022-03-30] MEDS: lamoTRIgine 25 MG TAB PO SCH (08:38)
[2022-03-30] MEDS: SERTRALINE HCL 50 MG TABLET PO SCH (08:38)
[2022-03-30] MEDS: PANTOprazole 40 MG TAB PO SCH (08:38)
[2022-03-30] MEDS: lamoTRIgine 100 MG TAB PO SCH (08:38)
--- NOTE | 2022-03-30 08:46 | Psychiatric Progress Note ---
Date of Service March 30, 2022 Impression / Recommendations Elsie Joiner is a 37 year old man with a history of narcissistic personality disorder, depression, alcohol use disorder and medical marijuana use who was admitted for worsening irritability, depression, and SI with reckless driving. Diagnostically consistent with major depression with psychotic features versus paranoia due to cannabis use as well as alcohol use disorder with recent relapse as well as NPD per history and question of intermittent explosive disorder. He is deemed in need of psychiatric hospitalization for diagnostic clarification, safety and stabilization, medication management and development of further coping skills. 03/30/22: Ongoing depression with irritability, mood swings, sense of internal anger. Tolerating initiation of abilify but still with GI symptoms so he consents to switching from sertraline to fluoxetine for depression. Reviewed side effects including but not limited to: GI, PANTOJA, sexual side effects, and counseled on black box warning of potential for emergence of or increased SI and need to let staff know should this occur or should they feel unsafe. Will hold naltrexone until GI symptoms improve. No signs of alcohol withdrawal. Mood Disorder questionnaire completed and reviewed, inconsistent with BPAD. He's finishing IED questionnaire. Reviewed labwork-fasting lipid panel normal, glucose elevated at 100, HbA1c level pending. 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 The patient will participate in group, recreational, and milieu therapies and will be offered additional individual and family sessions as clinically appropriate. -continue lamictal 225mg qd (confirmed has not missed any recent doses) -start abilify 2.5mg qd -start sertraline 25mg -re-start naltrexone 50mg with dinner -Mood disorder questionnaire -IED questionnaire Inventory Assets Strengths: supportive relationships, willing to get treatment, young children, good rapport with outpatient therapist Needs: safety and stabilization, medication adjustment, additional coping skills, increased outpatient services Suicide Risk Level Suicide Risk Level: High-Moderate (q15 min suicide checks) (depression with SI prior to admission but feels safe in the hospital, able to safety contract and agrees to let nursing/staff know should they develop plan, intent or feel unable to remain safe. 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 Chief Complaint "I'm having a lot of mood swings". Review of Systems Sleep Information Total Hours of Sleep: 7.15 Meal Information Percent Meal Consumed - Breakfast: 0 Percent Meal Consumed - Lunch: 100 Percent Meal Consumed - Dinner: 25 Nutrition Comment: Subjective Subjective Patient was seen & assessed and interval progress reviewed with treatment team nursing and social work. Attending groups and participating. Did have some stomach discomfort yesterday so held naltrexone and he wasn't able to eat lunch or dinner. This morning still having some stomach issues, less hungry and with nausea. Feels his mood continues to shift between depressed, vulnerable and irritated or angry. Trying not to get overwhelmed by some of his anxious worries and "obsessional thoughts" about what to do with his business and other stressors. Hasn't noticed any medication side effects except GI symptoms which he thinks could be due to not using cannabis here. Wondering about possibility of residential substance use treatment versus IOP. Physical Exam Psychiatric Orientation: alert and oriented x 3 Apperance: appropriately dressed and appropriately groomed Eye Contact: good eye contact Motor Behavior: no abnormal motor movements Speech: normal rate/rhythm/volume of speech Affect: + depressed affect and + anxious affect Mood: + depressed mood and + anxious mood Thought Process: + circumstantial thought process Thought Content: + paranoid (at times, sense someone is watching ) and reality based without delusions Suicidal Thoughts: denies suicidal intent; + reports suicidal thoughts (intermittent thoughts ) and + reports suicidal plan (none for here, outside hospital has been driving recklessly) Homicidal Thoughts: denies homicidal thoughts Hallucinations: no auditory hallucinations and no visual hallucinations Cognition: recent memory grossly intact, remote memory grossly intact, attention grossly intact and language grossly intact Estimated Intelligence: consistent with education level Insight: + fair insight Judgment: + limited judgement Vital Signs (Past 24 Hours) Last Vital Signs Temp 36.4 C 03/30/22 06:00 Pulse 63 03/30/22 06:00 Resp 18 03/30/22 06:00 BP 120/72 03/30/22 06:14 Pulse Ox 99 03/30/22 06:00 O2 Del Method 03/30/22 06:00 Results & Data ([facility]) Laboratory Results Laboratory Results - last 24 hr 03/30/22 03/30/22 06:59 06:59 Fasting Glucose 100 H Estimat Average Glucose Pending Hemoglobin A1c Pending Triglycerides 112 Cholesterol 191 LDL Cholesterol, Calc 100 VLDL Cholesterol, Calc 22 HDL Cholesterol 69 Cholesterol/HDL Ratio 2.8 Current Inpatient Medications Current Inpatient Medications: Current Inpatient Medications Acetaminophen (Acetaminophen 325 Mg Tab) 650 mg PO Q4H PRN PRN Reason: Headache or Minor Fever Stop: 04/28/22 00:29 Last Admin: 03/29/22 14:15 Dose: 650 mg Al Hydrox/Mg Hydrox/Simethicone (Aluminum/Magnesium Susp 30 Ml Udc) 30 ml PO Q4H PRN PRN Reason: GI Upset Stop: 04/28/22 00:29 Last Admin: 03/29/22 17:57 Dose: 30 ml Aripiprazole (Aripiprazole 5 Mg Tab) 2.5 mg PO QAM CHERYL Stop: 04/28/22 11:29 Last Admin: 03/30/22 08:37 Dose: 2.5 mg Bismuth Subsalicylate (Bismuth Subsalicylate Liqd 236 Ml) 15 ml PO PRN PRN PRN Reason: Loose Stool Stop: 04/28/22 00:29 Hydroxyzine HCl (Hydroxyzine Hcl 25 Mg Tab) 50 mg PO HSZ PRN PRN Reason: Insomnia Stop: 04/28/22 00:29 Last Admin: 03/29/22 22:33 Dose: 50 mg Hydroxyzine HCl (Hydroxyzine Hcl 25 Mg Tab) 25 mg PO Q4H PRN PRN Reason: Anxiety Stop: 04/28/22 00:29 Lamotrigine (Lamotrigine 100 Mg Tab) 200 mg PO QAM [facility] Stop: 04/28/22 10:59 Last Admin: 03/30/22 08:38 Dose: 200 mg Lamotrigine (Lamotrigine 25 Mg Tab) 25 mg PO DAILY CHERYL Stop: 04/28/22 10:59 Last Admin: 03/30/22 08:38 Dose: 25 mg Magnesium Hydroxide (Magnesium Hydroxide Susp 30 Ml Udc) 30 ml PO DAILY PRN PRN Reason: Constipation Stop: 04/28/22 00:29 Naltrexone HCl (Naltrexone Hcl 50 Mg Tab) 50 mg PO DAILYBD CHERYL Stop: 04/28/22 17:14 Last Admin: 03/29/22 17:56 Dose: Not Given Pantoprazole Sodium (Pantoprazole 40 Mg Tab) 40 mg PO QAM [facility] Stop: 04/28/22 10:59 Last Admin: 03/30/22 08:38 Dose: 40 mg Sertraline HCl (Sertraline Hcl 50 Mg Tablet) 25 mg PO QAM [facility] Stop: 04/28/22 11:29 Last Admin: 03/30/22 08:38 Dose: 25 mg Sodium Chloride (Sodium Chloride 0.65% Na Soln 45 Ml ([place])) 1 - 2 sprays NA PRN PRN PRN Reason: Nasal Dryness/Congestion Stop: 04/28/22 00:29 Mental Health & Subst Abuse Tx Therapist Name of Therapist: [facility] Leadership Development Instructor Name of Leadership Development Instructor: Alex
[2022-03-30] MEDS: hydrOXYzine HCl 25 MG TAB PO PRN (23:00)
[2022-03-31 03:23] LABS: Marijuana Quant, GCMS Urine 3778 ng/mL (<5)
[2022-03-31 07:21] LABS: Estimated Average Glucose 114 mg/dl; Hemoglobin A1C 5.6 % (4.5-5.6)
[2022-03-31] MEDS: lamoTRIgine 100 MG TAB PO SCH (08:15)
[2022-03-31] MEDS: ARIPiprazole 5 MG TAB PO SCH (08:15)
[2022-03-31] MEDS: FLUoxetine HCL 20 MG CAP PO SCH (08:15)
[2022-03-31] MEDS: lamoTRIgine 25 MG TAB PO SCH (08:16)
[2022-03-31] MEDS: PANTOprazole 40 MG TAB PO SCH (08:16)
--- NOTE | 2022-03-31 08:39 | Psychiatric Progress Note ---
Date of Service March 31, 2022 Impression / Recommendations Impression Edna is a 37 year old man with a history of narcissistic personality disorder, depression, alcohol use disorder and medical marijuana use who was admitted for worsening irritability, depression, and SI with reckless driving. Diagnostically consistent with major depression with psychotic features versus paranoia due to cannabis use as well as alcohol use disorder with recent relapse as well as NPD per history and intermittent explosive disorder. He is deemed in need of psychiatric hospitalization for diagnostic clarification, safety and stabilization, medication management and development of further coping skills. 03/31/22: Ongoing depression with irritability, mood swings, sense of internal anger and periods of paranoia/sense of being watched but mood improving gradually. Reviewed HbA1c 5.6% and within normal limits but will need to followed by his PCP. Wants to restart naltrexone which was held to stomach pain. Ongoing motivational interviewing and exploring options for alcohol use treatment. Reviewed IED questionnaire and meets criteria for this. 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 Continue abilify and fluoxetine. 03/30/22: -Increase abilify to 5mg qd -Stop sertraline -Start fluoxetine 20mg qd -Hold naltrexone until GI symptoms improve 03/29/2022: The patient was admitted to the [facility]) on q15 min checks (behavioral with suicide precautions) for safety. The patient will participate in group, recreational, and milieu therapies and will be offered additional individual and family sessions as clinically appropriate. -continue lamictal 225mg qd (confirmed has not missed any recent doses) -start abilify 2.5mg qd -start sertraline 25mg -re-start naltrexone 50mg with dinner -Mood disorder questionnaire -IED questionnaire Inventory Assets Strengths: supportive relationships, willing to get treatment, young children, good rapport with outpatient therapist Needs: safety and stabilization, medication adjustment, additional coping skills, increased outpatient services Suicide Risk Level Suicide Risk Level: Moderate (q15 min suicide checks) (depression with SI prior to admission but mood improving a bit, feels safe in the hospital, able to safety contract and agrees to let nursing/staff know should they develop plan, intent or feel unable to remain safe. 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 Chief Complaint "I'm a little better". Review of Systems Sleep Information Total Hours of Sleep: 7.5 Meal Information Percent Meal Consumed - Breakfast: 50 Percent Meal Consumed - Lunch: 50 Percent Meal Consumed - Dinner: 50 Subjective Subjective Patient was seen & assessed and interval progress reviewed with treatment team nursing and social work. Continues to have mood swings, especially with anger and irritability but feels this lessening a bit. Called his partner and was overwhelmed hearing all the kids yelling in the background and worries how he'll react and manage emotions once he's back in that environment. No medication side effects. No stomach issues today, still feels full quickly but able to eat 1/2 of his breakfast and 1/2 lunch. Overwhelmed by how to manage his business and parenting and relationship. Wondering if he needs residential substance use treatment to improve his likelihood of sobriety versus IOP with AA for accountability and support. Physical Exam Psychiatric Orientation: alert and oriented x 3 Apperance: appropriately dressed and appropriately groomed Eye Contact: good eye contact Motor Behavior: no abnormal motor movements Speech: normal rate/rhythm/volume of speech Affect: + depressed affect and + anxious affect Mood: + depressed mood and + anxious mood Thought Process: + circumstantial thought process Thought Content: + paranoid (at times, gets sense someone is watching ) and reality based without delusions Suicidal Thoughts: denies suicidal plan and denies suicidal intent; + reports suicidal thoughts (intermittent thoughts but lessening ) Homicidal Thoughts: denies homicidal thoughts Hallucinations: no auditory hallucinations and no visual hallucinations Cognition: recent memory grossly intact, remote memory grossly intact, attention grossly intact and language grossly intact Estimated Intelligence: consistent with education level Insight: + fair insight Judgment: + limited judgement Vital Signs (Past 24 Hours) Last Vital Signs Temp 36.7 C 03/31/22 06:00 Pulse 58 L 03/31/22 06:00 Resp 18 03/31/22 06:00 BP 119/76 03/31/22 06:28 Pulse Ox 99 03/31/22 06:00 O2 Del Method 03/31/22 06:00 Results & Data ([facility]) Laboratory Results Laboratory Results - last 24 hr 03/28/22 03/30/22 21:35 06:59 Estimat Average Glucose 114 Hemoglobin A1c 5.6 U Marijuana THC Carboxy 3778 H Drug Screen Comment SEE NOTE Current Inpatient Medications Current Inpatient Medications: Current Inpatient Medications Acetaminophen (Acetaminophen 325 Mg Tab) 650 mg PO Q4H PRN PRN Reason: Headache or Minor Fever Stop: 04/28/22 00:29 Last Admin: 03/29/22 14:15 Dose: 650 mg Al Hydrox/Mg Hydrox/Simethicone (Aluminum/Magnesium Susp 30 Ml Udc) 30 ml PO Q4H PRN PRN Reason: GI Upset Stop: 04/28/22 00:29 Last Admin: 03/29/22 17:57 Dose: 30 ml Aripiprazole (Aripiprazole 5 Mg Tab) 5 mg PO QAM [facility] Stop: 04/30/22 08:59 Last Admin: 03/31/22 08:15 Dose: 5 mg Bismuth Subsalicylate (Bismuth Subsalicylate Liqd 236 Ml) 15 ml PO PRN PRN PRN Reason: Loose Stool Stop: 04/28/22 00:29 Fluoxetine HCl (Fluoxetine Hcl 20 Mg Cap) 20 mg PO QAM CHERYL Stop: 04/30/22 08:59 Last Admin: 03/31/22 08:15 Dose: 20 mg Hydroxyzine HCl (Hydroxyzine Hcl 25 Mg Tab) 50 mg PO HSZ PRN PRN Reason: Insomnia Stop: 04/28/22 00:29 Last Admin: 03/30/22 23:00 Dose: 50 mg Hydroxyzine HCl (Hydroxyzine Hcl 25 Mg Tab) 25 mg PO Q4H PRN PRN Reason: Anxiety Stop: 04/28/22 00:29 Lamotrigine (Lamotrigine 100 Mg Tab) 200 mg PO QAM CHERYL Stop: 04/28/22 10:59 Last Admin: 03/31/22 08:15 Dose: 200 mg Lamotrigine (Lamotrigine 25 Mg Tab) 25 mg PO DAILY CHERYL Stop: 04/28/22 10:59 Last Admin: 03/31/22 08:16 Dose: 25 mg Magnesium Hydroxide (Magnesium Hydroxide Susp 30 Ml Udc) 30 ml PO DAILY PRN PRN Reason: Constipation Stop: 04/28/22 00:29 Naltrexone HCl (Naltrexone Hcl 50 Mg Tab) 50 mg PO DAILYBD [facility] Stop: 04/28/22 17:14 Last Admin: 03/29/22 17:56 Dose: Not Given Pantoprazole Sodium (Pantoprazole 40 Mg Tab) 40 mg PO QAM CHERYL Stop: 04/28/22 10:59 Last Admin: 03/31/22 08:16 Dose: 40 mg Sodium Chloride (Sodium Chloride 0.65% Na Soln 45 Ml ([place])) 1 - 2 sprays NA PRN PRN PRN Reason: Nasal Dryness/Congestion Stop: 04/28/22 00:29 Mental Health & Subst Abuse Tx Therapist Name of Therapist: [facility] Sign Carpenter Name of Sign Carpenter: Alex
[2022-03-31] MEDS ORDERED: NALTREXONE HCL 50 MG TAB PO ONE (17:41)
[2022-03-31] MEDS: hydrOXYzine HCl 25 MG TAB PO PRN (22:14)
[2022-04-01] MEDS: lamoTRIgine 25 MG TAB PO SCH (08:40)
[2022-04-01] MEDS: ARIPiprazole 5 MG TAB PO SCH (08:40)
[2022-04-01] MEDS: FLUoxetine HCL 20 MG CAP PO SCH (08:40)
[2022-04-01] MEDS: lamoTRIgine 100 MG TAB PO SCH (08:40)
[2022-04-01] MEDS: PANTOprazole 40 MG TAB PO SCH (08:41)
[2022-04-01] MEDS: ALUMINUM/MAGNESIUM SUSP 30 ML UDC PO PRN (09:42)
--- NOTE | 2022-04-01 13:03 | Psychiatric Progress Note ---
Date of Service April 01, 2022 Impression / Recommendations Impression Edna is a 37 year old man with a history of narcissistic personality disorder, depression, alcohol use disorder and medical marijuana use who was admitted for worsening irritability, depression, and SI with reckless driving. Diagnostically consistent with major depression, with likely component from alcohol withdrawal, and alcohol use disorder with periods of paranoia likely due to cannabis use versus intoxication with alcohol. Also with NPD per history and intermittent explosive disorder. He is deemed in need of psychiatric hospitalization for diagnostic clarification, safety and stabilization, medicat ion management and development of further coping skills. 04/01/22: Ongoing depression slightly worse mood today but no SI and paranoia has resolved. Reviewed potential for naltrexone to impact mood, he would like to continue with this for now. Given relapse of alcohol use and further exploration of amount and frequency of use he meets criteria for and would like to pursue residential substance use treatment. 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 03/31/22: Restart naltrexone 50mg with dinner. Continue abilify and fluoxetine. 03/30/22: -Increase abilify to 5mg qd -Stop sertraline -Start fluoxetine 20mg qd -Hold naltrexone until GI symptoms improve 03/29/2022: The patient was admitted to the [facility] ([facility] mental health unit) on q15 min checks (behavioral with suicide precautions) for safety. The patient will participate in group, recreational, and milieu therapies and will be offered additional individual and family sessions as clinically appropriate. -continue lamictal 225mg qd (confirmed has not missed any recent doses) -start abilify 2.5mg qd -start sertraline 25mg -re-start naltrexone 50mg with dinner -Mood disorder questionnaire -IED questionnaire Inventory Assets Strengths: supportive relationships, willing to get treatment, young children, good rapport with outpatient therapist Needs: safety and stabilization, medication adjustment, additional coping skills, increased outpatient services Suicide Risk Level Suicide Risk Level: Moderate (q15 min suicide checks) (depression with SI prior to admission but mood improving a bit, denies SI, feels safe in the hospital, able to safety contract and agrees to let nursing/staff know should they develop plan, intent or feel unable to remain safe. 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 Chief Complaint "I'm a little overwhelmed". Review of Systems Sleep Information Total Hours of Sleep: 7.5 Meal Information Percent Meal Consumed - Breakfast: 50 Percent Meal Consumed - Lunch: 60 Percent Meal Consumed - Dinner: 75 Subjective Subjective Patient was seen & assessed and interval progress reviewed with treatment team nursing and social work. Called his girlfriend last night and they had an argument on the phone. Mood is lower today compared with yesterday, he wonders if it's due to naltrexone or because of trying to make decision about residential treatment. Decides he feels he needs residential treatment for his alcohol use and feels he won't be able to avoid use outside of secure environment if he doesn't get further substance use treatment. Reviewed recent alcohol use. He relapsed in November and had been drinking every day up until last . Recently had been drinking 1 pint up to 1/5th of hard liquor throughout the day and sometimes 3-4 tall cans of [employer] hard lemonade. Physical Exam Psychiatric Orientation: alert and oriented x 3 Apperance: appropriately dressed and appropriately groomed Eye Contact: good eye contact Motor Behavior: no abnormal motor movements Speech: normal rate/rhythm/volume of speech Affect: + depressed affect and + anxious affect Mood: + depressed mood and + anxious mood Thought Process: + circumstantial thought process Thought Content: reality based without delusions Suicidal Thoughts: denies suicidal plan and denies suicidal intent; + reports suicidal thoughts (intermittent thoughts but lessening ) Homicidal Thoughts: denies homicidal thoughts Hallucinations: no auditory hallucinations and no visual hallucinations Cognition: recent memory grossly intact, remote memory grossly intact, attention grossly intact and language grossly intact Estimated Intelligence: consistent with education level Insight: + fair insight Judgment: + limited judgement Vital Signs (Past 24 Hours) Last Vital Signs Temp 36.6 C 04/01/22 06:37 Pulse 76 04/01/22 06:38 Resp 16 04/01/22 06:37 BP 129/88 04/01/22 06:38 Pulse Ox 99 03/31/22 06:00 O2 Del Method 03/31/22 06:00 Results & Data ([facility]) Current Inpatient Medications Current Inpatient Medications: Current Inpatient Medications Acetaminophen (Acetaminophen 325 Mg Tab) 650 mg PO Q4H PRN PRN Reason: Headache or Minor Fever Stop: 04/28/22 00:29 Last Admin: 03/29/22 14:15 Dose: 650 mg Al Hydrox/Mg Hydrox/Simethicone (Aluminum/Magnesium Susp 30 Ml Udc) 30 ml PO Q4H PRN PRN Reason: GI Upset Stop: 04/28/22 00:29 Last Admin: 04/01/22 09:42 Dose: 30 ml Aripiprazole (Aripiprazole 5 Mg Tab) 5 mg PO QAM [facility] Stop: 04/30/22 08:59 Last Admin: 04/01/22 08:40 Dose: 5 mg Bismuth Subsalicylate (Bismuth Subsalicylate Liqd 236 Ml) 15 ml PO PRN PRN PRN Reason: Loose Stool Stop: 04/28/22 00:29 Fluoxetine HCl (Fluoxetine Hcl 20 Mg Cap) 20 mg PO QAM [facility] Stop: 04/30/22 08:59 Last Admin: 04/01/22 08:40 Dose: 20 mg Hydroxyzine HCl (Hydroxyzine Hcl 25 Mg Tab) 50 mg PO HSZ PRN PRN Reason: Insomnia Stop: 04/28/22 00:29 Last Admin: 03/31/22 22:14 Dose: 50 mg Hydroxyzine HCl (Hydroxyzine Hcl 25 Mg Tab) 25 mg PO Q4H PRN PRN Reason: Anxiety Stop: 04/28/22 00:29 Lamotrigine (Lamotrigine 100 Mg Tab) 200 mg PO QAM CHERYL Stop: 04/28/22 10:59 Last Admin: 04/01/22 08:40 Dose: 200 mg Lamotrigine (Lamotrigine 25 Mg Tab) 25 mg PO DAILY CHERYL Stop: 04/28/22 10:59 Last Admin: 04/01/22 08:40 Dose: 25 mg Magnesium Hydroxide (Magnesium Hydroxide Susp 30 Ml Udc) 30 ml PO DAILY PRN PRN Reason: Constipation Stop: 04/28/22 00:29 Naltrexone HCl (Naltrexone Hcl 50 Mg Tab) 50 mg PO DAILYBD CHERYL Stop: 05/01/22 17:14 Pantoprazole Sodium (Pantoprazole 40 Mg Tab) 40 mg PO QAM CHERY[facility] Stop: 04/28/22 10:59 Last Admin: 04/01/22 08:41 Dose: 40 mg Sodium Chloride (Sodium Chloride 0.65% Na Soln 45 Ml ([place])) 1 - 2 sprays NA PRN PRN PRN Reason: Nasal Dryness/Congestion Stop: 04/28/22 00:29 Mental Health & Subst Abuse Tx Therapist Name of Therapist: [facility]- Samir Therapist's Date of Therapist Appointment: 04/03/2022 Time of Therapist Appointment: 6pm Therapy Appointment Comment: [address], [address], [place] [address] Nursing Educator Name of Nursing Educator: None Post Discharge Appointments Primary Care Physician Name Of Family Doctor/PCP: Kendal Luciano [facility] Date of Future Appointment with PCP: 04/29/2022 Time of Appointment with PCP: 11:20am Provider Appointment Comment: Suzette Barber, [place] [id number]
[2022-04-01] MEDS ORDERED: NALTREXONE HCL 50 MG TAB PO SCH (17:15)
[2022-04-01] MEDS: hydrOXYzine HCl 25 MG TAB PO PRN ×2 (18:46→21:48)
[2022-04-02] MEDS: ARIPiprazole 5 MG TAB PO SCH (08:35)
[2022-04-02] MEDS: FLUoxetine HCL 20 MG CAP PO SCH (08:36)
[2022-04-02] MEDS: PANTOprazole 40 MG TAB PO SCH (08:36)
[2022-04-02] MEDS: lamoTRIgine 25 MG TAB PO SCH (08:36)
[2022-04-02] MEDS: lamoTRIgine 100 MG TAB PO SCH (08:36)
[2022-04-02] MEDS: hydrOXYzine HCl 25 MG TAB PO PRN ×3 (11:08→22:37)
--- NOTE | 2022-04-02 17:28 | Psychiatric Progress Note ---
Date of Service April 02, 2022 Impression / Recommendations Elsie Joiner is a 37 year old man with a history of narcissistic personality disorder, depression, alcohol use disorder and medical marijuana use who was admitted for worsening irritability, depression, and SI with reckless driving. Diagnostically consistent with major depression, with likely component from alcohol withdrawal, and alcohol use disorder with periods of paranoia likely due to cannabis use versus intoxication with alcohol. Also with NPD per history and intermittent explosive disorder. He is deemed in need of psychiatric hospitalization for diagnostic clarification, safety and stabilization, medicat ion management and development of further coping skills. 04/02/22:Mood stabilized with no SI, focused on desire for residential alcohol use treatment. Will discontinue naltrexone as possibly contributing to sense of restlessness vs prolonged withdrawal from alcohol and cannabis vs akathisia from abilify. He prefers to continue with abilify, discussed option to try propranolol in future if restlessness doesn't resolve with d/c of naltrexone. 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 04/01/22: Continue current medications and tx plan. 03/31/22: Restart naltrexone 50mg with dinner. Continue abilify and fluoxetine. 03/30/22: -Increase abilify to 5mg qd -Stop sertraline -Start fluoxetine 20mg qd -Hold naltrexone until GI symptoms improve 03/29/2022: The patient was [facility] to the [facility] on q15 min checks (behavioral with suicide precautions) for safety. The patient will participate in group, recreational, and milieu therapies and will be offered additional individual and family sessions as clinically appropriate. -continue lamictal 225mg qd (confirmed has not missed any recent doses) -start abilify 2.5mg qd -start sertraline 25mg -re-start naltrexone 50mg with dinner -Mood disorder questionnaire -IED questionnaire Inventory Assets Strengths: supportive relationships, willing to get treatment, young children, good rapport with outpatient therapist Needs: safety and stabilization, medication adjustment, additional coping skills, increased outpatient services Suicide Risk Level Suicide Risk Level: Low (q15 min observation checks) (denies SI, feels safe in the hospital) Suicide Risk Level Comments: Risk Factors Assessment Male: Yes : Yes Do You Have Access To A Gun?: Yes (in a locked safe, willing to have these removed from the home) Health Problems: No Mental Health Diagnoses: Yes Substance Use Disorders: Yes Previous Attempt: No Family History of Suicide: No Previous Psychiatric Hospitalization: No Protective Factors Assessment Responsible for Young Children: Yes 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 Chief Complaint "My mood is more stable". Review of Systems Sleep Information Total Hours of Sleep: 8 Sleep Comments: pt appeared to sleep well. pt on q-15 minute checks Meal Information Percent Meal Consumed - Breakfast: 75 Percent Meal Consumed - Lunch: 50 Percent Meal Consumed - Dinner: 50 Subjective Subjective Patient was seen & assessed and interval progress reviewed with treatment team nursing and social work. Attending all groups. Reports his mood is much more stable and no longer feels as frustrated noting "know I am able to interact easily with others and work through any feelings of frustration". Has a sense of restlessness, reviewed that could be side effect to abilify though he thinks it is due to naltrexone as timing fits with restart of this and he's experienced similar side effect to it before. Prefers to stop naltrexone for now as he plans to start residential treatment and can then re-trial initiation of naltrexone in that setting. Wants to continue with abilify at current dose. Denies SI. Focused on goal of residential substance use treatment for alcohol use disorder. Physical Exam Psychiatric Orientation: alert and oriented x 3 Apperance: appropriately dressed and appropriately groomed Eye Contact: good eye contact Motor Behavior: no abnormal motor movements Speech: normal rate/rhythm/volume of speech Affect: + anxious affect Mood: + anxious mood Thought Process: goal directed thought process Thought Content: reality based without delusions Suicidal Thoughts: denies suicidal thoughts, denies suicidal plan and denies suicidal intent Homicidal Thoughts: denies homicidal thoughts Hallucinations: no auditory hallucinations and no visual hallucinations Cognition: recent memory grossly intact, remote memory grossly intact, attention grossly intact and language grossly intact Estimated Intelligence: consistent with education level Insight: + fair insight Judgment: + fair judgement Vital Signs (Past 24 Hours) Last Vital Signs Temp 36.6 C 04/02/22 06:31 Pulse 73 04/02/22 06:32 Resp 18 04/02/22 06:31 BP 132/92 04/02/22 06:32 Pulse Ox 99 03/31/22 06:00 O2 Del Method 03/31/22 06:00 Results & Data ([facility]) Current Inpatient Medications Current Inpatient Medications: Current Inpatient Medications Acetaminophen (Acetaminophen 325 Mg Tab) 650 mg PO Q4H PRN PRN Reason: Headache or Minor Fever Stop: 04/28/22 00:29 Last Admin: 03/29/22 14:15 Dose: 650 mg Al Hydrox/Mg Hydrox/Simethicone (Aluminum/Magnesium Susp 30 Ml Udc) 30 ml PO Q4H PRN PRN Reason: GI Upset Stop: 04/28/22 00:29 Last Admin: 04/01/22 09:42 Dose: 30 ml Aripiprazole (Aripiprazole 5 Mg Tab) [address] [facility] Stop: 04/30/22 08:59 Last Admin: 04/02/22 08:35 Dose: 5 mg Bismuth Subsalicylate (Bismuth Subsalicylate Liqd 236 Ml) 15 ml PO PRN PRN PRN Reason: Loose Stool Stop: 04/28/22 00:29 Fluoxetine HCl (Fluoxetine Hcl 20 Mg Cap) 20 mg PO QAM [facility] Stop: 04/30/22 08:59 Last Admin: 04/02/22 08:36 Dose: 20 mg Hydroxyzine HCl (Hydroxyzine Hcl 25 Mg Tab) 50 mg PO HSZ PRN PRN Reason: Insomnia Stop: 04/28/22 00:29 Last Admin: 04/01/22 21:48 Dose: 50 mg Hydroxyzine HCl (Hydroxyzine Hcl 25 Mg Tab) 25 mg PO Q4H PRN PRN Reason: Anxiety Stop: 04/28/22 00:29 Last Admin: 04/02/22 11:08 Dose: 25 mg Lamotrigine (Lamotrigine 100 Mg Tab) 200 mg PO QAM [facility]ERY[facility] Stop: 04/28/22 10:59 Last Admin: 04/02/22 08:36 Dose: 200 mg Lamotrigine (Lamotrigine 25 Mg Tab) 25 mg PO DAILY CHERYL Stop: 04/28/22 10:59 Last Admin: 04/02/22 08:36 Dose: 25 mg Magnesium Hydroxide (Magnesium Hydroxide Susp 30 Ml Udc) 30 ml PO DAILY PRN PRN Reason: Constipation Stop: 04/28/22 00:29 Pantoprazole Sodium (Pantoprazole 40 Mg Tab) 40 mg PO QAM [facility]ERY[facility] Stop: 04/28/22 10:59 Last Admin: 04/02/22 08:36 Dose: 40 mg Sodium Chloride (Sodium Chloride 0.65% Na Soln 45 Ml ([place])) 1 - 2 sprays NA PRN PRN PRN Reason: Nasal Dryness/Congestion Stop: 04/28/22 00:29 Mental Health & Subst Abuse Tx Therapist Name of Therapist: [facility]- Samir Therapist's Date of Therapist Appointment: 04/03/2022 Time of Therapist Appointment: 6pm Therapy Appointment Comment: [address], [address], [place] [address] Natural Resources Manager Name of Natural Resources Manager: None Post Discharge Appointments Primary Care Physician Name Of Family Doctor/PCP: Kendal Hagan- Dr. Luciano Primary [facility] Date of Future Appointment with PCP: 05/13/2022 Time of Appointment with PCP: 11:20am Provider Appointment Comment: Suzette Barber, [place] [id number]
[2022-04-03] MEDS: ARIPiprazole 5 MG TAB PO SCH (08:37)
[2022-04-03] MEDS: lamoTRIgine 25 MG TAB PO SCH (08:37)
[2022-04-03] MEDS: FLUoxetine HCL 20 MG CAP PO SCH (08:37)
[2022-04-03] MEDS: lamoTRIgine 100 MG TAB PO SCH (08:38)
[2022-04-03] MEDS: PANTOprazole 40 MG TAB PO SCH (08:39)
[2022-04-03] MEDS: hydrOXYzine HCl 25 MG TAB PO PRN ×2 (12:11→21:56)
--- NOTE | 2022-04-03 17:09 | Psychiatric Progress Note ---
Date of Service April 03, 2022 Impression / Recommendations Elsie Joiner is a 37 year old man with a history of narcissistic personality disorder, depression, alcohol use disorder and medical marijuana use who was admitted for worsening irritability, depression, and SI with reckless driving. Diagnostically consistent with major depression, with likely component from alcohol withdrawal, and alcohol use disorder with periods of paranoia likely due to cannabis use versus intoxication with alcohol. Also with NPD per history and intermittent explosive disorder. He is deemed in need of psychiatric hospitalization for diagnostic clarification, safety and stabilization, medicat ion management and development of further coping skills. 04/03/22:Mood stabilized with no SI, focused on desire for residential alcohol use treatment still with some anxiety but he is managing this. Restlessness improved with discontinuation of naltrexone, potential to consider acamprosate in the future since side effects with naltrexone, not available on formulary here. Plan for residential substance use treatment once bed available. 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 Needs to remain inpatient until transfer to residential treatment given high risk of alcohol use relapse in unstructured outpatient setting. 04/02/22: Discontinue naltrexone. 04/01/22: Continue current medications and tx plan. 03/31/22: Restart naltrexone 50mg with dinner. Continue abilify and fluoxetine. 03/30/22: -Increase abilify to 5mg qd -Stop sertraline -Start fluoxetine 20mg qd -Hold naltrexone until GI symptoms improve 03/29/2022: The patient was admitted to the [facility] ([facility] mental [facility] unit) on q15 min checks (behavioral with suicide precautions) for safety. The patient will participate in group, recreational, and milieu therapies and will be offered additional individual and family sessions as clinically appropriate. -continue lamictal 225mg qd (confirmed has not missed any recent doses) -start abilify 2.5mg qd -start sertraline 25mg -re-start naltrexone 50mg with dinner -Mood disorder questionnaire -IED questionnaire Inventory Assets Strengths: supportive relationships, willing to get treatment, young children, good rapport with outpatient therapist Needs: safety and stabilization, medication adjustment, additional coping skills, increased outpatient services Suicide Risk Level Suicide Risk Level: Low (q15 min observation checks) (denies SI, feels safe in the hospital) Suicide Risk Level Comments: Risk Factors Assessment Male: Yes : Yes Do You Have Access To A Gun?: Yes (in a locked safe, willing to have these re moved from the home) Health Problems: No Mental Health Diagnoses: Yes Substance Use Disorders: Yes Previous Attempt: No Family History of Suicide: No Previous Psychiatric Hospitalization: No Protective Factors Assessment Responsible for Young Children: Yes 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 Chief Complaint "I'm ok". Review of Systems Sleep Information Total Hours of Sleep: 6 Sleep Comments: pt appeared to sleep well. pt on q-15 minute checks Meal Information Percent Meal Consumed - Breakfast: 80 Percent Meal Consumed - Lunch: 80 Percent Meal Consumed - Dinner: 75 Subjective Subjective Patient was seen & assessed and interval progress reviewed with treatment team nursing and social work. Frustrated after declined from residential treatment yesterday due to history of self-harm. But continues to attend groups and remain focused on sobreity goal. Sense of restlessness and skin stretching has improved significantly with discontinuing naltrexone. He's finding Vistaril very helpful when he feels anxious. Physical Exam Psychiatric Orientation: alert and oriented x 3 Apperance: appropriately dressed and appropriately groomed Eye Contact: good eye contact Motor Behavior: no abnormal motor movements Speech: normal rate/rhythm/volume of speech Affect: + anxious affect Mood: + anxious mood Thought Process: goal directed thought process Thought Content: reality based without delusions Suicidal Thoughts: denies suicidal thoughts, denies suicidal plan and denies suicidal intent Homicidal Thoughts: denies homicidal thoughts Hallucinations: no auditory hallucinations and no visual hallucinations Cognition: recent memory grossly intact, remote memory grossly intact, attention grossly intact and language grossly intact Estimated Intelligence: consistent with education level Insight: + fair insight Judgment: + fair judgement Vital Signs (Past 24 Hours) Last Vital Signs Temp 37.4 C 04/03/22 06:44 Pulse 54 L 04/03/22 06:44 Resp 18 04/03/22 06:44 BP 127/84 04/03/22 06:45 Pulse Ox 99 03/31/22 06:00 O2 Del Method 03/31/22 06:00 Results & Data (U) Laboratory Results Laboratory Results - last 24 hr 04/03/22 14:25 SARS-CoV-2 (PCR) NEGATIVE Current Inpatient Medications Current Inpatient Medications: Current Inpatient Medications Acetaminophen (Acetaminophen 325 Mg Tab) 650 mg PO Q4H PRN PRN Reason: Headache or Minor Fever Stop: 04/28/22 00:29 Last Admin: 03/29/22 14:15 Dose: 650 mg Al Hydrox/Mg Hydrox/Simethicone (Aluminum/Magnesium Susp 30 Ml Udc) 30 ml PO Q4H PRN PRN Reason: GI Upset Stop: 04/28/22 00:29 Last Admin: 04/01/22 09:42 Dose: 30 ml Aripiprazole (Aripiprazole 5 Mg Tab) 5 mg PO QAM [facility] Stop: 04/30/22 08:59 Last Admin: 04/03/22 08:37 Dose: 5 mg Bismuth Subsalicylate (Bismuth Subsalicylate Liqd 236 Ml) 15 ml PO PRN PRN PRN Reason: Loose Stool Stop: 04/28/22 00:29 Fluoxetine HCl (Fluoxetine Hcl 20 Mg Cap) 20 mg PO QAM [facility] Stop: 04/30/22 08:59 Last Admin: 04/03/22 08:37 Dose: 20 mg Hydroxyzine HCl (Hydroxyzine Hcl 25 Mg Tab) 50 mg PO HSZ PRN PRN Reason: Insomnia Stop: 04/28/22 00:29 Last Admin: 04/02/22 22:37 Dose: 50 mg Hydroxyzine HCl (Hydroxyzine Hcl 25 Mg Tab) 25 mg PO Q4H PRN PRN Reason: Anxiety Stop: 04/28/22 00:29 Last Admin: 04/03/22 12:11 Dose: 25 mg Lamotrigine (Lamotrigine 100 Mg Tab) 200 mg PO QAM [facility] Stop: 04/28/22 10:59 Last Admin: 04/03/22 08:38 Dose: 200 mg Lamotrigine (Lamotrigine 25 Mg Tab) 25 mg PO DAILY [facility] Stop: 04/28/22 10:59 Last Admin: 04/03/22 08:37 Dose: 25 mg Magnesium Hydroxide (Magnesium Hydroxide Susp 30 Ml Udc) 30 ml PO DAILY PRN PRN Reason: Constipation Stop: 04/28/22 00:29 Pantoprazole Sodium (Pantoprazole 40 Mg Tab) 40 mg PO QAM [facility] Stop: 04/28/22 10:59 Last Admin: 04/03/22 08:39 Dose: 40 mg Sodium Chloride (Sodium Chloride 0.65% Na Soln 45 Ml ([place])) 1 - 2 sprays NA PRN PRN PRN Reason: Nasal Dryness/Congestion Stop: 04/28/22 00:29 Mental Health & Subst Abuse Tx Therapist Name of Therapist: [facility] Therapist's Date of Therapist Appointment: 04/03/2022 Time of Therapist Appointment: 6pm Therapy Appointment Comment: [address], [address], [place] [address] Club Licensee Name of Club Licensee: None Post Discharge Appointments Primary Care Physician Name Of Family Doctor/PCP: [facility] Date of Future Appointment with PCP: 05/13/2022 Time of Appointment with PCP: 11:20am Provider Appointment Comment: [place] [id number]
--- NOTE | 2022-04-04 07:55 | Discharge Summary ---
Date of Service April 04, 2022 History of Present Illness He presents for psychiatric admission for worsening depression, mood swings, irritability and intrusive thoughts which leads to SI and urge to drive recklessly in the context of multiple psychosocial stressors including managing blended family dynamics and conflict with his girlfriend to the point that she's considering breaking up. He reflects "it's my anger and aggressiveness" that has been causing the conflict and despite his work in therapy still feels powerless at times to change his behaviors in the moment. He also reports a porn addiction, self-harm via head punching/banging, and low self-esteem/body dysmorphia particularly with regard to sexual organs. Recently has started using alcohol a bit again. He identifies ways that his insecurity or his negative feelings get displaced, and even though he knows why he is doing it, in the mom ent he finds he can't control things and this leads to conflict and then a cycle of regret. Finds he can get "obsessed" about things and ruminates on worries about work or money. 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 Increased tearfulness, anger/irritability, increased impulsivity, last three months self-harmed by hitting himself in the head due to "wave of obsessing over things", sleep poor with limited stretches at a time, decreased appetite. When he's alone he's been driving recklessly due to ambivalence about being alive. He's also noticed some increased paranoia, especially while painting like someone is watching over his shoulder. Always struggles more with depression during the colder months. Missed too many psychiatric appointments so was discharged from the practice. He is prescribed lamictal 225mg daily (last filled February by his PCP) and has been taking this. Has been taking naltrexone 50mg for alcohol use but will stop it intermittently so he can feel more of the effects of alcohol and stopped taking naltrexone completely this weekend. Reviewed and confirmed recent history per ED psych CM note from 03/29/2022: "Met with Rhys and his bedside to complete mental health evaluation. Rhys stated he is diagnosed with Bipolar Disorder and Narcissistic Personality Disorder. Rhys stated he feels like he is cycling uncontrollably though out the day. Rhys stated he is unable to regulate his emotions and feels "emotionally out of control." He stated he has been in therapy for three years and has been working hard to "manage my narcissistic tendencies." Rhys stated he is insightful and "when I slip up and do something like call my a name I get upset with myself. Then I get angry and do something stupid like punch the wall. Then I get more upset with myself and start perseverating on suicide." Rhys stated he has intermittent thoughts of suicide that have been increasing lately. He denies active plan or intent of suicide. He denies prior suicide attempts. Rhys stated he starts to feel very frustrated "and then I just don't care and do more stupid stuff like drive erratically." Rhys stated he is worried that "something bad is going to happen if I don't get my emotions under control." He stated he has 5 children and "don't want them to ever see me do something." Rhys denies any HI. He admits to only driving aggressively and occasionally punching a wall. He denies SIB. He reports poor appetite and decreased sleep. He denies hallucinations. He stated he recently started to feel paranoid at work that he is being watched or someone is standing behind him. 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 He stated he has not been able to focus on work lately. He has a history of alcohol abuse. Rhys stated he has gone to rehab ([facility]) and had been sober until "starting to dabble a little recently." Rhys stated he had a drink on Thursday and "just worried if I don't get my mental health under control that alcohol will become an issue again." Rhys stated he is prescribed medicinal marijuana. He admits to "recently using it more recreationally which I know I shouldn't be doing." He denies other substance use. He denies history of trauma or abuse. He did stated he was raised in "an emotionally bad family." He denies legal issues. He denies medical concerns. Rhys stated he was prescribed medication by Dr. Price but he was recently dropped due to missed appointments. His medications are currently being continued by PCP. Rhys sees a therapist at [facility] twice a week. He stated his therapist seems to focus on the NPD and not really help him address his mood instability or anger management. Rhys was seeing a drug and alcohol counselor at [facility] until provider closed recently. Rhys would like to be admitted for inpatient mental health treatment." Psychiatric ROS notable for no current nor history of symptoms of marty, psychosis, PTSD, OCD nor eating disorder. Physical Exam Vital Signs (Past 24 Hours) Last Vital Signs Temp 36.9 C 04/04/22 06:34 Pulse 65 04/04/22 06:35 Resp 16 04/04/22 06:34 BP 142/86 H 04/04/22 06:35 Pulse Ox 99 03/31/22 06:00 O2 Del Method 03/31/22 06:00 See admission H&P and DOD summary. Principal Diagnosis Major Depressive Disorder, Alcohol use disorder Psychiatric Data See daily stay summary. In short, safety was maintained and the patient was cooperative with care. Medication changes included initiation of fluoxetine for MDD and IED, abilify for augmentation of MDD and Vistaril prn for anxiety and insomnia and they tolerated this well. Attempted to restart naltrexone but he experienced side effects of sense of physical discomfort and restlessness so this was discontinued. Baseline labs of fasting glucose, HbA1c, fasting lipid profile, and weight were preformed and normal with exception of glucose elevated at 100. Recommend repeat weight in one month. Recommend repeat fasting glucose, HbA1c and fasting lipid profile every 12 weeks and then annually. If symptoms arise recommend checking BP, EKG, prolactin level as clinically indicated or relevant. A family session was held and safety plan was completed prior to discharge. Extensive motivational interviewing was done during his admission and he felt that residential substance use treatment would offer him the best support at continuing to avoid alcohol use. He was discharged via secure transport to [place] for the dual diagnosis rehab program. He actively and insightfully participated in safety planning and in discussions about ways to seek support and recognizing warning signs and utilizing coping skills. Reviewed mobile apps that could be used for additional ways to have their safety plan and contacts easily available should thoughts of SI re-emerge in the future. Reviewed importance of seeking emergency care should SI intensify, worsen or should they feel unsafe in the future which they agree to do. On the day of discharge he stated his mood was "good" and "ready for rehab" and remained future-oriented including ongoing substance use treatment, and eventually seeing his family and engaging in aftercare appointments for psychiatry, therapy and substance use therapy. Day of Discharge Assessment Today the patient voices readiness for discharge. They note improvement in mood and anxiety. They deny thoughts of harm to self or others. Thoughts are organized and they are clinically improved from admission. There is no evidence of psychosis. They improved in the hospital with support and medication adjustments. They agree to take medications as prescribed and keep follow-up appointments. At the time of the discharge they are deemed to be stable and appropriate for outpatient level of care. They are not deemed to be at imminent risk of harm to self or others. They are aware of emergency and crisis services. Knows to call 911 or go to nearest emergency care center if in a crisis which cannot be handled as an outpatient. Transition of Care Transition Of Care Record: was reviewed with the patient Advance Directives Advance Directives Information Provided: Yes Advance Directives: No Mental Health Advance Directive: No Advance Directives on File: No Living Will: No Power of Blacking Wheel Tender: No Advance Directives Reason:: Declines as Mental Health Visit. Suicide Risk Level Suicide Risk Level Comments: Acute risk is low given improvement in mood and denial of SI, lack of access to lethal means, plan to avoid substance use, improvement in sleep , hopefulness. Chronic risk is moderate given some non-modifiable risk factors: psychiatric co- morbid diagnoses, periods of impulsivity, emotional reactivity, but also with protective factors including: employed,good social support, sense of responsibility to family and social supports, outpatient care in place, positive coping skills, positive problem solving, capacity to establish therapeutic alliance, willingness to engage with treatment , capacity for self-observation. Counseled on ways to reduce acute and chronic risk including engaging with outpatient providers, using safety plan if needed, utilizing supports, avoiding substances, taking medication, and using coping skills. Modifiable risk factors of SI, depression, substance use were addressed during hospitalization through development of new coping skills, family meeting, safety planning, medication adjustments and referral for ongoing residential substance use program. 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) Stable Relationships: Yes Supportive Family: Yes Good Rapport with Provider: Yes Discharge Data Lab Results 03/28/22 03/28/22 03/28/22 20:23 20:23 20:23 WBC 8.02 RBC 4.56 L Hgb 14.4 Hct 41.4 L MCV 90.8 MCH 31.6 MCHC 34.8 RDW Std Deviation 41.7 RDW Coeff of Jaxson 12.6 Plt Count 217 MPV 10.2 Immature Gran % (Auto) 0.2 Neut % (Auto) 61.5 Lymph % (Auto) 31.3 Slope % (Auto) 5.6 Eos % (Auto) 0.9 Baso % (Auto) 0.5 Neut # (Auto) 4.93 Lymph # (Auto) 2.51 Slope # (Auto) 0.45 Eos # (Auto) 0.07 Baso # (Auto) 0.04 Immature Gran # (Auto) 0.02 Sodium 140 Potassium 4.1 Chloride 103 Carbon Dioxide 29 Anion Gap 8 BUN 19 Creatinine 1.02 Est Cr Clr Drug Dosing 104.4 Est GFR ( Amer) 109.9 Est GFR (Non-Af Amer) 94.8 BUN/Creatinine Ratio 18.6 Glucose 106 H Fasting Glucose Estimat Average Glucose Hemoglobin A1c Calcium 9.5 Total Bilirubin 0.5 AST 17 ALT 13 Alkaline Phosphatase 76 Total Protein 7.3 Albumin 4.5 Globulin 2.8 Albumin/Globulin Ratio 1.6 Triglycerides Cholesterol LDL Cholesterol, Calc VLDL Cholesterol, Calc HDL Cholesterol Cholesterol/HDL Ratio TSH 2.776 Urine Color Urine Appearance Urine pH Ur Specific Towanda Urine Protein Urine Glucose (UA) Urine Ketones Urine Blood Urine Nitrite Urine Bilirubin Urine Urobilinogen Ur Leukocyte Esterase Salicylates Urine Opiates Screen Ur Methadone, Qual Acetaminophen Urine Barbiturates Ur Phencyclidine (PCP) U Amphetamin/Meth Scrn MDMA (Ecstasy) Screen U Benzodiazepines Scrn Ur Cocaine Metabolite U Marijuana (THC) Screen U Marijuana THC Carboxy Drug Screen Comment Ethyl Alcohol mg/dL SARS-CoV-2 (PCR) SARS-CoV-2, RNA, NAAT 03/28/22 03/28/22 03/28/22 20:23 20:23 20:23 WBC RBC Hgb Hct MCV MCH MCHC RDW Std Deviation RDW Coeff of Jaxson Plt Count MPV Immature Gran % (Auto) Neut % (Auto) Lymph % (Auto) Slope % (Auto) Eos % (Auto) Baso % (Auto) Neut # (Auto) Lymph # (Auto) Slope # (Auto) Eos # (Auto) Baso # (Auto) Immature Gran # (Auto) Sodium Potassium Chloride Carbon Dioxide Anion Gap BUN Creatinine Est Cr Clr Drug Dosing Est GFR ( Amer) Est GFR (Non-Af Amer) BUN/Creatinine Ratio Glucose Fasting Glucose Estimat Average Glucose Hemoglobin A1c Calcium Total Bilirubin AST ALT Alkaline Phosphatase Total Protein Albumin Globulin Albumin/Globulin Ratio Triglycerides Cholesterol LDL Cholesterol, Calc VLDL Cholesterol, Calc HDL Cholesterol Cholesterol/HDL Ratio TSH Urine Color Urine Appearance Urine pH Ur Specific [place] Urine Protein Urine Glucose (UA) Urine Ketones Urine Blood Urine Nitrite Urine Bilirubin Urine Urobilinogen Ur Leukocyte Esterase Salicylates < 3.0 L Urine Opiates Screen Ur Methadone, Qual Acetaminophen 5 L Urine Barbiturates Ur Phencyclidine (PCP) U Amphetamin/Meth Scrn MDMA (Ecstasy) Screen U Benzodiazepines Scrn Ur Cocaine Metabolite U Marijuana (THC) Screen U Marijuana THC Carboxy Drug Screen Comment Ethyl Alcohol mg/dL < 10.0 SARS-CoV-2 (PCR) SARS-CoV-2, RNA, NAAT NEGATIVE 03/28/22 03/28/22 03/28/22 21:35 21:35 21:35 WBC RBC Hgb Hct MCV MCH MCHC RDW Std Deviation RDW Coeff of Jaxson Plt Count MPV Immature Gran % (Auto) Neut % (Auto) Lymph % (Auto) Slope % (Auto) Eos % (Auto) Baso % (Auto) Neut # (Auto) Lymph # (Auto) Slope # (Auto) Eos # (Auto) Baso # (Auto) Immature Gran # (Auto) Sodium Potassium Chloride Carbon Dioxide Anion Gap BUN Creatinine Est Cr Clr Drug Dosing Est GFR ( Amer) Est GFR (Non-Af Amer) BUN/Creatinine Ratio Glucose Fasting Glucose Estimat Average Glucose Hemoglobin A1c Calcium Total Bilirubin AST ALT Alkaline Phosphatase Total Protein Albumin Globulin Albumin/Globulin Ratio Triglycerides Cholesterol LDL Cholesterol, Calc VLDL Cholesterol, Calc HDL Cholesterol Cholesterol/HDL Ratio TSH Urine Color Yellow Urine Appearance Slightly Cloudy A Urine pH 6.5 Ur Specific [place]anda 1.029 Urine Protein Negative Urine Glucose (UA) Negative Urine Ketones Trace H Urine Blood Negative Urine Nitrite Negative Urine Bilirubin Negative Urine Urobilinogen Negative Ur Leukocyte Esterase Negative Salicylates Urine Opiates Screen Neg Ur Methadone, Qual Neg Acetaminophen Urine Barbiturates Neg Ur Phencyclidine (PCP) Neg U Amphetamin/Meth Scrn Neg MDMA (Ecstasy) Screen Neg U Benzodiazepines Scrn Neg Ur Cocaine Metabolite Neg U Marijuana (THC) Screen Pos H U Marijuana THC Carboxy 3778 H Drug Screen Comment SEE NOTE Ethyl Alcohol mg/dL SARS-CoV-2 (PCR) SARS-CoV-2, RNA, NAAT 03/30/22 03/30/22 04/03/22 06:59 06:59 14:25 WBC RBC Hgb Hct MCV MCH MCHC RDW Std Deviation RDW Coeff of Jaxson Plt Count MPV Immature Gran % (Auto) Neut % (Auto) Lymph % (Auto) Slope % (Auto) Eos % (Auto) Baso % (Auto) Neut # (Auto) Lymph # (Auto) Slope # (Auto) Eos # (Auto) Baso # (Auto) Immature Gran # (Auto) Sodium Potassium Chloride Carbon Dioxide Anion Gap BUN Creatinine Est Cr Clr Drug Dosing Est GFR ( Amer) Est GFR (Non-Af Amer) BUN/Creatinine Ratio Glucose Fasting Glucose 100 H Estimat Average Glucose 114 Hemoglobin A1c 5.6 Calcium Total Bilirubin AST ALT Alkaline Phosphatase Total Protein Albumin Globulin Albumin/Globulin Ratio Triglycerides 112 Cholesterol 191 LDL Cholesterol, Calc 100 VLDL Cholesterol, Calc 22 HDL Cholesterol 69 Cholesterol/HDL Ratio 2.8 TSH Urine Color Urine Appearance Urine pH Ur Specific [place] Urine Protein Urine Glucose (UA) Urine Ketones Urine Blood Urine Nitrite Urine Bilirubin Urine Urobilinogen Ur Leukocyte Esterase Salicylates Urine Opiates Screen Ur Methadone, Qual Acetaminophen Urine Barbiturates Ur Phencyclidine (PCP) U Amphetamin/Meth Scrn MDMA (Ecstasy) Screen U Benzodiazepines Scrn Ur Cocaine Metabolite U Marijuana (THC) Screen U Marijuana THC Carboxy Drug Screen Comment Ethyl Alcohol mg/dL SARS-CoV-2 (PCR) NEGATIVE SARS-CoV-2, RNA, NAAT Hospital Course (1) Recurrent severe major depressive disorder with anxiety: (2) Alcohol use disorder, moderate, dependence: (3) Depression with suicidal ideation: (4) 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 Needs to remain inpatient until transfer to residential treatment given high risk of alcohol use relapse in unstructured outpatient setting. 04/02/22: Discontinue naltrexone. 04/01/22: Continue current medications and tx plan. 03/31/22: Restart naltrexone 50mg with dinner. Continue abilify and fluoxetine. 03/30/22: -Increase abilify to 5mg qd -Stop sertraline -Start fluoxetine 20mg qd -Hold naltrexone until GI symptoms improve 03/29/2022: The patient was admitted to the [facility] ([facility] mental health unit) on q15 min checks (behavioral with suicide precautions) for safety. The patient will participate in group, recreational, and milieu therapies and will be offered additional individual and family sessions as clinically appropriate. -continue lamictal 225mg qd (confirmed has not missed any recent doses) -start abilify 2.5mg qd -start sertraline 25mg -re-start naltrexone 50mg with dinner -Mood disorder questionnaire -IED questionnaire Mental Health & Subst Abuse Tx Therapist Name of Therapist: [facility]- Samir Therapist's Date of Therapist Appointment: 04/03/2022 Time of Therapist Appointment: 6pm Therapy Appointment Comment: [address], [address], [place] [address] Bone Crusher Name of Bone Crusher: None Post Discharge Appointments Primary Care Physician Name Of Family Doctor/PCP: Kendal Hagan- Dr. Luciano Primary Care Date of Future Appointment with PCP: 05/13/2022 Time of Appointment with PCP: 11:20am Provider Appointment Comment: [place] [address] Other #1: Name of Aftercare Appointment: [facility] Phone Number of Aftercare Appointment: [phone] Time of Aftercare Appointment: Please follow-up to begin IOP and med management after d/c from rehab. Aftercare Appointment Comment: [address], [address], [place], [place] Discharge Plan Discharge Items Patient Disposition: Drug & Alcohol Rehab Reason For Visit: MDD Discharge Diagnosis: Major Depressive Disorder with anxious distress, Alcohol use disorder Activity: Resume your previous activity Non-emergency contact: Primary Care Provider, Psychiatrist and Therapist Call non-emergency contact if: you have any medication questions and your symptoms worsen Follow-up/Referrals: Maxi Luciano DO [Primary Care Provider] - Diet: Regular Addtl Attending Provider Instructions: Optional mobile apps: -Suicide safety plan -Virtual Hope Box -Panic Barrel Rib Matting Machine Operator SPECIAL CARE INSTRUCTIONS: 1. Follow through with your scheduled aftercare appointments. If unable to keep an appointment, please call to reschedule. 2. Take your medication only as prescribed. Medication should not be changed or stopped without the approval of your doctor. In the event of worsening symptoms or concerns about side effects, contact your doctor immediately. 3. Utilize new healthy coping skills, anger management skills, and stress management skills learned during your hospitalization. Journal feelings and process them with a support person. Identify stressors or situations that may result in relapse, deterioration or inappropriate behaviors and develop a plan to deal with those issues. 4. If your coping skills are ineffective and you are in crisis, contact your outpatient providers for direction. If unable to reach your providers, please call the [facility] CRISIS LINE AT , go to the [facility] walk-in center at [address] [place] [address] A, [place], or go to the closest Emergency Room. 5. Avoid alcohol and un-prescribed drugs. 6. You have been provided with the Mental Health Advance Directives Pamphlet for your review. 7. Your condition is stable for discharge to outpatient level of care, but recovery is an ongoing process. Ifthoughts to harm yourself or others return, follow the safety plan developed during your stay. Planning for a safe return home includes securing weapons. Our treatment team recommends weaponsbe removed from the home until your outpatient provider reassesses your progress. In rare cases where the items themselvescannot be removed, guns and ammunitionshould be secured separatelyand keys stored by a reliable personoutside of the home. If you were admitted on an involuntary commitment, the police or other legal authorities may be involved in this process. AFTERCARE APPOINTMENTS: * Please call your insurance company prior to your scheduled appointment to confirm your aftercare providers are covered. Take your insurance information to your appointments. WHO TO CALL AND WHEN: Medical Emergencies: For questions or emergencies related to your hospital stay, please contact the Inpatient Behavioral Health Unit at [phone]. A program support clerk is on-call 15/09 for the Behavioral Health Unit for em ergencies At any time you feel your situation is an emergency, you may also call 911 immediately. Pending Studies at Discharge: No Stand-Alone Forms: My [facility] Skilled Items Patient informed of condition?: Yes DNR: No Discharge Level of Care: Other Communicable Disease: No Discharge Prognosis: Stable Lines: None Urinary Catheter: No Medications and DC Order Prescriptions: New lamotrigine 100 mg Tablet 225 mg PO QAM Qty: 1 0RF aripiprazole [Abilify] 5 mg Tablet 5 mg PO QAM Qty: 1 0RF fluoxetine 20 mg Capsule 20 mg PO QAM Qty: 1 0RF hydroxyzine HCl 50 mg tablet 50 mg PO HS PRN (Reason: insomnia) Qty: 1 0RF hydroxyzine HCl 25 mg Tablet 25 mg PO TID PRN (Reason: anxiety) Qty: 1 0RF pantoprazole 40 mg Tablet,Delayed Release (Dr/Ec) 40 mg PO QAM Qty: 1 0RF Continued minocycline 50 mg capsule 500 mg PO QAM Discontinued trazodone 50 mg tablet 50 mg PO QPM PRN (Reason: Sleep) Label Comments: Patient states he takes PRN naltrexone 50 mg tablet 50 mg PO QAM pantoprazole 40 mg tablet,delayed release (DR/EC) 40 mg PO BID lamotrigine [Lamictal] 150 mg tablet 300 mg PO QAM Discharge Orders: Discharge Order (Routine); Ordered 04/04/22 Ordered By: Sarah Jimenez Admission Data Admit Date/Time: 03/29/22 00:30 Attending Provider: Sarah Jimenez Admit Provider: Sarah Jimenez Primary Care Provider: Maxi Luciano Other Interventions: Discharge Summary Assessment (RN) Last Done: 04/04/22 08:01 PSY Interdisciplinary Discharge Planning Last Done: 04/04/22 08:24 Coding Level of Care Code 46083 D/C day mgmt > 30 min Diagnoses Recurrent severe major depressive disorder with anxiety F33.2; F41.9 Alcohol use disorder, moderate, dependence F10.20 Depression with suicidal ideation F32.A; R45.851 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
[2022-04-04] MEDS: FLUoxetine HCL 20 MG CAP PO SCH (08:13)
[2022-04-04] MEDS: ARIPiprazole 5 MG TAB PO SCH (08:13)
[2022-04-04] MEDS: lamoTRIgine 25 MG TAB PO SCH (08:14)
[2022-04-04] MEDS: lamoTRIgine 100 MG TAB PO SCH (08:14)
[2022-04-04] MEDS: PANTOprazole 40 MG TAB PO SCH (08:14)
[2022-04-04] MEDS: hydrOXYzine HCl 25 MG TAB PO PRN (08:53)
== END 2022-04-04 09:00 | disposition alcohol treatment (31) | DRG 885 ==
LOC: ED 19:31 → 3S 03-29 00:30